=== PATIENT | male | born 1960 | race Caucasian/White ===

== ENCOUNTER → 2016-09-15 | Outpatient (CLI) | payer OTHER ==
--- NOTE | 2016-09-20 10:07 | P.ARTDOP ---
Arterial Doppler LOWER EXTREMITY ARTERIAL DOPPLER: DATE OF SERVICE: 09/15/2016 Reason for study: Right leg pain. Doppler waveforms: Multiphasic bilaterally throughout. Pulse volume recording: Normal configuration throughout. Pressure gradients: None. Ankle-brachial indices: Greater than 1 bilaterally. Toe pressures: 131 on the right, 147 on the left Impression: Normal study.
== END | disposition home or self-care (01) ==
LOC: RADUSWWP 12:18
PROVIDERS: ATTEND Internal Medicine
DX: M79.604 Pain in right leg (principal); M79.605 Pain in left leg
CPT/HCPCS: 93923

== ENCOUNTER 2017-12-04 08:00 | Day surgery (SDC) | payer MEDICARE, OTHER ==
[2017-12-03 09:19] VITALS: BMI 32.8
[~2017-12-04 08:00] MED LIST: SODIUM CHLORIDE 0.9% 1,000 ML IV SCH
[2017-12-04 08:20] VITALS: BP 135/70; PULSE 84; RESP 18; TEMP 97.9
--- NOTE | 2017-12-04 16:00 | P.PCN ---
Preoperative Diagnosis: Diagnosis Syncope Twelve-lead ECG shows sinus rhythm normal PA narrow QRS normal ST segments normal QT interval no delta waves Tilt table test Patient was tilted upright at an angle of 70 per protocol. Baseline blood pressure 115/65 mmHg Baseline heart rate 68 beats a minute Patient was tilted upright at an angle of 70 per protocol is no change in his heart rate and blood pressure No evidence for neurocardiogenic syncope Impression Normal twelve-lead ECG Normal heart rate and blood pressure response to upright tilting
== END 2017-12-04 09:57 | disposition home or self-care (01) ==
LOC: CATHEP 08:00
PROVIDERS: ATTEND Internal Medicine Clinical Cardiac Electrophysiology
DX: R55 Syncope and collapse (principal)
CPT/HCPCS: 93005; 93660

== ENCOUNTER → 2022-09-04 | Outpatient (CLI) | payer MEDICARE ==
--- NOTE | 2022-09-05 07:37 | US ---
EXAMINATION TYPE: US abdomen complete DATE OF EXAM: 09/04/2022 COMPARISON: NONE CLINICAL INDICATION: Male, 62 years old with history of R80.9 POSITIVE MICROALBUMINURIA; TECHNIQUE: Multiple sonographic images of the abdomen are obtained. FINDINGS: EXAM MEASUREMENTS: Liver Length: 18.5 cm Gallbladder Wall: 0.2 cm CBD: 5.6 mm Spleen: 12.5 cm Right Kidney: 12.5 x 5.8 x 6.0 cm Left Kidney: 12.3 x 6.0 x 5.9 cm Pancreas: visualized portions wnl, limited by overlying midline bowel gas Liver: enlarged, course echotexture Gallbladder: multiple echogenic shadowing foci. No abnormal gallbladder distention, wall thickening, or pericholecystic. Evidence for sonographic Irwin's sign: no CBD: visualized portions upper limits of normal, limited by overlying bowel gas Spleen: wnl Right Kidney: wnl Left Kidney: wnl Upper IVC: wnl Abd Aorta: proximal portion measures in upper limits of normal, mid and distal portions obscured by overlying midline bowel gas IMPRESSION: 1. Bowel gas limiting the exam. 2. Mild hepatomegaly at 18.5 cm. Coarsened hepatic parenchyma may represent nonspecific hepatocellula r disease. 3. Cholelithiasis. No ancillary findings of acute cholecystitis. 4. No biliary ductal dilatation.
== END | disposition home or self-care (01) ==
LOC: RADUSWWP 15:29
PROVIDERS: ATTEND Family Medicine
DX: K80.20 Calculus of gallbladder without cholecystitis without obstruction (principal); R80.9 Proteinuria, unspecified; R16.0 Hepatomegaly, not elsewhere classified
CPT/HCPCS: 76700

== ENCOUNTER → 2024-05-23 | Outpatient (CLI) | payer MEDICARE ==
[2024-05-24 02:38] LABS: HCT 42.9 % (39.6-50.0); HGB 13.3 g/dL (13.0-17.0); MCH 27.8 pg (27.0-32.0); MCV 89.6 FL (80.0-97.0); Mean Platelet Volume 9.8 FL (9.5-12.2); NRBC Per 100 WBC 0 X 10*3/uL (0.00-0.01); Platelet Count 281 X 10*3/uL (140-440); RBC 4.79 X 10*6/uL (4.40-5.60); RDW 15.9 % (11.5-14.5)
[2024-05-24 03:43] LABS: Carbon Dioxide 26.8 mmol/L (21.6-31.8); Chloride 104 mmol/L (96-109); Potassium 5.3 mmol/L (3.5-5.5); Sodium 143 mmol/L (135-145)
== END | disposition home or self-care (01) ==
LOC: LABPAT 14:32
PROVIDERS: ATTEND Internal Medicine Clinical Cardiac Electrophysiology
DX: Z01.812 Encounter for preprocedural laboratory examination (principal); I50.22 Chronic systolic (congestive) heart failure; I25.5 Ischemic cardiomyopathy
CPT/HCPCS: 80051; 82565; 84520; 85027

== ENCOUNTER 2024-07-24 14:33 | Day surgery (SDC) | payer MEDICARE ==
[2024-07-21 11:58] VITALS: BMI 31.8
[~2024-07-24 14:33] MED LIST changes: -SODIUM CHLORIDE 0.9% 1,000 ML IV SCH; +VANCOMYCIN IV PER PHARMACY 1 EACH MISC MISCELLANE PRN
[2024-07-24] MEDS: IV FLUID CONTINUATION 1,000 ML IV ONE (14:54)
[2024-07-24] MEDS: SODIUM CHLORIDE 0.9% 1,000 ML IV SCH (14:56)
[2024-07-24] MEDS: VANCOMYCIN 1,500 MG in SODIUM CHLORIDE 0.9% 500 ML 500 ML IVPB ONE (15:02)
[2024-07-24] MEDS: INSULIN LISPRO (HumaLOG) 100 UNIT/ML 10 mL VL SQ ONE (15:07)
[2024-07-24 15:11] LABS: Glucose,Whole Blood 238 mg/dL (70-110)
[2024-07-24 15:23] LABS: Basophils # (A) 0.02 10*3/uL (0.00-0.10); Basophils % (A) 0.2 %; Eosinophils # (A) 0.07 10*3/uL (0.04-0.35); Eosinophils % (A) 0.8 %; HCT 41.7 % (39.6-50.0); HGB 14.1 g/dL (13.0-17.0); Lymphocytes # (A) 0.95 10*3/uL (0.90-5.00); Lymphocytes % (A) 10.5 %; MCH 26.9 pg (27.0-32.0); MCHC 33.8 g/dL (32.0-37.0); MCV 79.4 fL (80.0-97.0); Mean Platelet Volume 9.4 fL (9.5-12.2); Monocytes # (A) 0.39 10*3/uL (0.20-1.00); Monocytes % (A) 4.3 %; Neutrophils % (A) 83.8 %; Platelet Count 259 10*3/uL (140-440); RBC 5.25 10*6/uL (4.40-5.60); RDW 14.7 % (11.5-14.5); WBC 9.07 10*3/uL (4.50-10.00)
[2024-07-24 15:39] LABS: African American GFR (CKD) >90 (>60 ml/min/1.73 sqM); Anion Gap 9 mmol/L; Blood Urea Nitrogen 15 mg/dL (9-20); Calcium 9.6 mg/dL (8.4-10.2); Carbon Dioxide 28 mmol/L (22-30); Chloride 100 mmol/L (98-107); Glucose 257 mg/dL (74-99); Non-African American GFR(CKD) >90 (>60 ml/min/1.73 sqM); Potassium 3.9 mmol/L (3.5-5.1); Sodium 137 mmol/L (137-145)
[2024-07-24 16:06] VITALS: RESP 16
[2024-07-24] MEDS: HYDROCORTISONE SUCCINATE 100 MG/2 ML VIAL IV STA (16:09)
[2024-07-24] MEDS ORDERED: fentaNYL (PF) 50 MCG/ML 2 ML AMP ONE (19:50)
[2024-07-24] MEDS ORDERED: PROPOFOL 10 MG/ML 20 ML VIAL IV ONE (19:50)
[2024-07-24] MEDS ORDERED: diphenhydrAMINE 50 MG/ML 1 ML VIAL ONE (19:50)
[2024-07-24] MEDS ORDERED: MIDAZOLAM 2 MG/2 ML VIAL ONE (19:50)
[2024-07-24] MEDS: ceFAZolin 1 GM in SODIUM CHLORIDE 0.9% IRRIG BTL 250 ML IRRIGATION PRN (19:57)
[2024-07-24] MEDS: IOPAMIDOL-370 100ML BTL IVP ONE (19:57)
[2024-07-24] MEDS: ceFAZolin 2 GM in DEXTROSE 5% IN WATER 50 ML IVPB PRN (20:10)
[2024-07-24] MEDS: ROPIVACAINE 5 MG/ML 30 ML VIAL MISCELLANE ONE (20:25)
[2024-07-24] MEDS: LIDOCAINE 1% INJ 10MG/ML (20 ML MDV) SQ ONE (20:25)
[2024-07-24] MEDS: IOPAMIDOL-370 100ML BTL INJ ONE ×2 (20:46)
[2024-07-24] MEDS: HEPARIN SODIUM,PORCINE (1 ML) 2,500 UNIT in SODIUM CHLORIDE 0.9% 250 ML IRRIGATION ONE (20:48)
[2024-07-24] MEDS ORDERED: IPRATROPIUM-ALBUTEROL 3 ML NEB INHALATION PRN (21:29)
[2024-07-24] MEDS ORDERED: ACETAMINOPHEN TAB 325 MG TAB PO PRN (21:30)
[2024-07-24] MEDS ORDERED: HYDROcodone/APAP 5-325MG 1 EACH TAB PO PRN (21:30)
--- NOTE | 2024-07-24 21:38 | P.EPPROC ---
- EP Procedure Note Electrophysiology Procedure Note: Diagnosis Cardiomyopathy, chronic patient is a candidate for a primary prevention ICD for future risk of sudden cardiac . Coronary artery disease, old myocardial infarction, ischemic cardio myopathy Chronic systolic heart failure class II, reduced LV systolic function of 35% or less On guideline directed medical treatment for greater than 3 months No revascularization within the last 3 months No recent acute myocardial infarction within the last 40 days, status post coronary artery bypass grafting, old TN Severe LV dysfunction ejection fraction 30-35% Sinus bradycardia Procedure: Dual-chamber ICD implantation for management of risk of sudden cardiac /bradycardia Result: Dual chamber ICD implantation, Atrial lead: Medtronic model #5076, 52 cm in length. P waves 4.6 mV pacing impedance 513 ohms and pacing threshold 0.5 V at 0.4 ms RV ICD lead: Single coil Medtronic lead model number 6935M, 62 cm in length. R waves 7.6 mV, pacing impedance 570 ohms, high-voltage impedance 71 ohms, pacing threshold 0.8 V at 0.4 ms Procedure details: Patient was brought to the EP lab in a fasting state. Written informed consent was obtained prior to the procedure. Options, pros and cons, benefits and risks and complications discussed with patient in detail prior to the procedure (shared decision making). Importance of continuing medical treatment emphasized. Alternatives discussed. Patient would like to proceed with dual-chamber ICD implant. Left upper extremity venogram performed. 15 mL IV dye injected in the left arm. Patent axillary/subclavian vein The left pectoral area was prepped and draped as a protocol. IV antibiotics administered 1% lidocaine was used for local anesthesia. A 4 cm incision was made parallel to the deltopectoral groove, about 1.5 cm medial to it. The incision was carried down to the level of the pectoralis muscle and the subfasc ial pocket was made. Hemostasis was assured. The axillary vein access was obtained. Appropriately sized into to see sheaths were placed. ICD lead implanted in the right ventricle and screwed in. ICD lead tested for threshold, sensing, impedances and tested with high output pacing for diaphragmatic stimulation Atrial lead placed in the right atrial appendage and tested for threshold, sensing, impedance, and tested with high output pacing. Phrenic nerve stimulation Lead secured to the underlying transverse muscle after removing sheaths . Pocket irrigated with antibiotic solution Leads connected to the biventricular ICD generator. Wound closed in 3 layers and dressed per protocol Dual ICD interrogated and programmed. Appropriate pacing parameters, antitachycardia therapies with antitachycardia pacing cardioversion defibrillations programmed. Patient tolerated the procedure well without any acute complications. See scanned device report in EMR for lead details
[2024-07-25] MEDS: LACTATED RINGERS 1,000 ML IV SCH (00:08)
[2024-07-25] MEDS: GABAPENTIN 300 MG CAP PO SCH (00:18)
[2024-07-25] MEDS: ceFAZolin 2 GM in DEXTROSE 5% IN WATER 50 ML IVPB SCH (00:19)
[2024-07-25] MEDS: ACETAMINOPHEN IV (For NPO) 1,000 MG in EMPTY BAG 1 BAG IVPB ONE (00:19)
[2024-07-25 06:08] LABS: Glucose,Whole Blood 209 mg/dL (70-110)
[2024-07-25] MEDS: INSULIN GLARGINE (LANTUS) 100 UNIT/ML SYR SQ PRN (06:19)
--- NOTE | 2024-07-25 07:18 | XR ---
EXAMINATION TYPE: XR chest 2V DATE OF EXAM: 07/25/2024 CLINICAL INDICATION: Male, 64 years old with history of Lead placement check, TECHNIQUE: Frontal and lateral views of the chest are obtained. COMPARISON: Chest x-ray December 11, 2022 FINDINGS: Overlying sternal wires and mediastinal clips along with left atrial appendage clip are red emonstrated. Persistent cardiomegaly with new dual lead pacemaker/AICD having the leads projecting over the right atrium and right ventricle. No pneumothorax seen after pacemaker placement. Surgical change to left s houlder is redemonstrated. IMPRESSION: No acute complication related to pacemaker/defibrillator placement noted. [facility], , 07/25/2024 7:16 AM
[2024-07-25] MEDS: SYMBICORT 160-4.5 MCG INHALER INHALATION SCH (08:49)
[2024-07-25] MEDS: ATORVASTATIN 20 MG TAB PO SCH (09:59)
[2024-07-25] MEDS: DAPAGLIFLOZIN PROPANEDIOL 10 MG TABLET PO SCH (10:00)
[2024-07-25] MEDS: SPIRONOLACTONE 25 MG TAB PO SCH (10:00)
[2024-07-25] MEDS: predniSONE 5 MG TAB PO SCH (10:00)
[2024-07-25] MEDS: CLOPIDOGREL 75 MG TAB PO SCH (10:00)
[2024-07-25] MEDS: FUROSEMIDE 20 MG TAB PO SCH (10:00)
[2024-07-25] MEDS: METOPROLOL SUCCINATE (ER) 25 MG TAB.ER.24H PO SCH (10:00)
[2024-07-25] MEDS: ASPIRIN 81 MG PO SCH (10:00)
[2024-07-25] MEDS: METOPROLOL SUCCINATE (ER) 25 MG TAB.ER.24H PO STA (10:24)
[2024-07-25 10:50] VITALS: BP 124/74; TEMP 96.9
[2024-07-25 11:51] LABS: Glucose,Whole Blood 357 mg/dL (70-110)
[2024-07-25 12:53] VITALS: PULSE 52
--- NOTE | 2024-07-25 14:02 | P.DS ---
Providers Expected date of discharge: 07/25/24 Attending physician: Harinder Miller Primary care physician: Prem Elena [facility] Course: This is a 64-year-old male patient of Dr. Vazquez who, hospitalized under the care of Dr. Miller for ICD implantation. Patient is postop day #1. Device has been evaluated by desk representative. Patient denies chest pain or shortness of breath. Blood pressure 124/74, heart rate in the 70s, pulse ox is 95% on room air. Chest x-ray reveals no acute complication. Physical examination: Gen: This is a 64-year-old male in no acute distress. VS: reviewed HEENT: Head is atraumatic, normocephalic. Pupils equal, round. Sclerae is anicteric. NECK: Supple. No JVD. LUNGS: Clear to auscultation. No wheezes or rhonchi. No intercostal retractions. HEART: Regular rate and rhythm. No murmur. ABDOMEN: Soft No tenderness. EXTREMITIES: No pedal edema. No calf tenderness. NEUROLOGICAL: Patient is awake, alert and oriented x3. Assessment: Ischemic cardiomyopathy status post dual chamber ICD implantation Status post coronary artery bypass grafting Severe LV dysfunction with EF 30 to 35% Mild aortic stenosis Chronic congestive heart failure, class II congestive heart failure Plan: Continue patient's home cardiac medications Increase metoprolol succinate 75 mg daily Patient will be discharged home today in stable condition. Nurse practitioner note has been reviewed, I agree with documented findings and plan of care. Patient was seen and examined. Plan - Discharge Summary Discharge Rx Participant: No New Discharge Prescriptions: New Metoprolol Succinate (ER) [Toprol XL] 75 mg PO DAILY #135 tab Continue metFORMIN HCL [Glucophage] 1,000 mg PO BID #60 tab Gabapentin 600 mg PO TID HYDROcodone/APAP 10-325MG [[place] 10-325] 1 tab PO TID PRN PRN Reason: Pain Dapagliflozin Propanediol [Farxiga] 10 mg PO DAILY #30 tab Clopidogrel [Plavix] 75 mg PO DAILY #30 tab Budesonide-Formot 160-4.5 Mcg [Symbicort 160-4.5 Mcg Inhaler] 2 puff INHALATION RT-BID 2 Days #1 each Spironolactone 25 mg PO DAILY Magnesium Oxide [Magnesium] 500 mg PO DAILY Insulin Detemir (Levemir) [Levemir] 7 unit SQ DAILY@0700 PRN PRN Reason: Takes if BS is over 200 Ipratropium-Albuterol Nebulize [Duoneb 0.5 mg-3 mg/3 ml Soln] 3 ml INHALATION DIRECTED PRN PRN Reason: Shortness Of Breath predniSONE 5 mg PO DAILY Albuterol Inhaler [Ventolin Hfa Inhaler] 1 - 2 puff INHALATION RT-QID PRN PRN Reason: Shortness Of Breath Furosemide [Lasix] 20 mg PO DAILY Atorvastatin [Lipitor] 20 mg PO DAILY Aspirin 81 mg PO DAILY Discontinued Metoprolol Succinate (ER) [Toprol Xl] 25 mg PO DAILY Discharge Medication List metFORMIN HCL [Glucophage] 1,000 mg PO BID #60 tab 07/24/14 [Rx] Albuterol Inhaler [Ventolin Hfa Inhaler] 1 - 2 puff INHALATION RT-QID PRN 11/17/22 [History] Gabapentin 600 mg PO TID 11/17/22 [History] HYDROcodone/APAP 10-325MG [[place] 10-325] 1 tab PO TID PRN 11/17/22 [History] Budesonide-Formot 160-4.5 Mcg [Symbicort 160-4.5 Mcg Inhaler] 2 puff INHALATION RT-BID 2 Days #1 each 12/04/22 [Rx] Clopidogrel [Plavix] 75 mg PO DAILY #30 tab 12/04/22 [Rx] Dapagliflozin Propanediol [Farxiga] 10 mg PO DAILY #30 tab 12/04/22 [Rx] Aspirin 81 mg PO DAILY 07/21/24 [History] Atorvastatin [Lipitor] 20 mg PO DAILY 07/21/24 [History] Furosemide [Lasix] 20 mg PO DAILY 07/21/24 [History] Insulin Detemir (Levemir) [Levemir] 7 unit SQ DAILY@0700 PRN 07/21/24 [History] Ipratropium-Albuterol Nebulize [Duoneb 0.5 mg-3 mg/3 ml Soln] 3 ml INHALATION DIRECTED PRN 07/21/24 [History] Magnesium Oxide [Magnesium] 500 mg PO DAILY 07/21/24 [History] Spironolactone 25 mg PO DAILY 07/21/24 [History] predniSONE 5 mg PO DAILY 05/05/25 [History] Metoprolol Succinate (ER) [Toprol XL] 75 mg PO DAILY #135 tab 07/25/24 [Rx] Follow up Appointment(s)/Referral(s): Harinder Miller MD [STAFF PHYSICIAN] - 08/01/24 11:00 am (FOLLOW UP APPOINTMENT MADE IN THE [facility]ICE [facility]. ) Patient Instructions/Handouts: Pacemaker (DC) Discharge Disposition: HOME SELF-CARE
[2024-07-26] MEDS ORDERED: METOPROLOL SUCCINATE (ER) 25 MG TAB.ER.24H PO SCH (09:00)
[2024-07-26] MEDS ORDERED: metFORMIN 500 MG TAB PO SCH (21:00)
== END 2024-07-25 13:02 | disposition home or self-care (01) ==
LOC: CATHEP 14:33 → 3SCARD 21:27 → CATHEP 07-25 13:02
PROVIDERS: ATTEND Internal Medicine Clinical Cardiac Electrophysiology
DX: I25.5 Ischemic cardiomyopathy (principal); I50.22 Chronic systolic (congestive) heart failure; I25.10 Atherosclerotic heart disease of native coronary artery without angina pectoris; I25.2 Old myocardial infarction; Z95.1 Presence of aortocoronary bypass graft; I35.0 Nonrheumatic aortic (valve) stenosis; E11.9 Type 2 diabetes mellitus without complications; Z79.84 Long term (current) use of oral hypoglycemic drugs; Z79.02 Long term (current) use of antithrombotics/antiplatelets; Z79.51 Long term (current) use of inhaled steroids; Z79.52 Long term (current) use of systemic steroids; Z79.82 Long term (current) use of aspirin; Z79.4 Long term (current) use of insulin; Z79.899 Other long term (current) drug therapy
CPT/HCPCS: 94640; 33249; 80048; 85025; 71046; C1769 ×2; C1721; C1892 ×2; C1898; C1895; J2250; J3370; J1200; J1644; J0690 ×2; J2003; J3010; J2795; J2704; J7512; Q9967

== ENCOUNTER 2024-09-30 09:57 | Inpatient (IN) | payer MEDICARE ==
[2024-09-30 10:03] LABS: Glucose,Whole Blood 326 mg/dL (70-110)
--- NOTE | 2024-09-30 10:21 | ED ---
Skin/Abscess/FB HPI - General Chief complaint: Skin/Abscess/Foreign Body Stated complaint: L foot wound Time Seen by Provider: 09/30/24 10:18 Source: patient, RN notes reviewed, old records reviewed Mode of arrival: ambulatory Limitations: no limitations - History of Present Illness Initial comments: 64-year-old male presented to the ER for evaluation of right foot wound. Patient sent by PCP given concern of infection. Patient reports approximately 2 weeks ago he was wearing slide sandals in the yard. He believes he must have hit or injured his toe while out in the yard. He denies a certain instance of injury. He reports over the past 2 weeks he has been caring for the wound at home with warm soapy water and applying Neosporin. Over the past 2 to 3 days patient has noticed increase in swelling redness and proximally spreading edema to toe into foot and ankle. Patient denies pain as he has history of neuropathy. He denies any fevers, chills or bodyaches. Patient is a type II diabetic currently taking metformin and Farxiga he did take his medications this morning. He does admit he is not compliant. - Related Data Home Medications Medication Instructions Recorded Confirmed Albuterol Inhaler [Ventolin Hfa 2 puff INHALATION RT-QID PRN 11/17/22 09/30/24 Inhaler] Gabapentin 600 mg PO TID 11/17/22 09/30/24 HYDROcodone/APAP 10-325MG [[place] 1 tab PO TID PRN 11/17/22 09/30/24 10-325] Ipratropium-Albuterol Nebulize 3 ml INHALATION RT-TID PRN 07/21/24 09/30/24 [Duoneb 0.5 mg-3 mg/3 ml Soln] Spironolactone 25 mg PO DAILY 07/21/24 09/30/24 predniSONE 5 mg PO DAILY 07/21/24 09/30/24 Atorvastatin [Lipitor] 20 mg PO DAILY 09/30/24 09/30/24 Furosemide [Lasix] 20 mg PO DAILY 09/30/24 09/30/24 Previous Rx's Medication Instructions Recorded metFORMIN HCL [Glucophage] 1,000 mg PO BID #60 tab 07/24/14 Budesonide-Formot 160-4.5 Mcg 2 puff INHALATION RT-BID 2 Days #1 12/04/22 [Symbicort 160-4.5 Mcg Inhaler] each Clopidogrel [Plavix] 75 mg PO DAILY #30 tab 12/04/22 Dapagliflozin Propanediol [Farxiga] 10 mg PO DAILY #30 tab 12/04/22 Metoprolol Succinate (ER) [Toprol 75 mg PO DAILY #135 tab 07/25/24 XL] Allergies Allergy/AdvReac Type Severity Reaction Status Date / Time No Known Allergies Allergy Verified 09/30/24 11:56 Review of Systems ROS Statement: Those systems with pertinent positive or pertinent negative responses have been documented in the HPI. ROS Other: All systems not noted in ROS Statement are negative. Past Medical History Past Medical History: Asthma, COPD, CVA/TIA, Diabetes Mellitus, Hyperlipidemia, Hypertension, Osteoarthritis (OA), Pneumonia Additional Past Medical History / Comment(s): occasional trouble swallowing,vertigo, "black out from coughing", traumatic brain injury. Since his traumatic brain injury he states that he has trouble swallowing and does aspirate. Last Myocardial Infarction Date:: 2022 History of Any Multi-Drug Resistant Organisms: None Reported Past Surgical History: Heart Catheterization, Orthopedic Surgery Additional Past Surgical History / Comment(s): LT SHOULDER ARTHROSCOPY 2012, LES carpal tunnel Sx 2005,rt shoulder rotator cuff and reattach of bicep muscle. catheterization 11/08 Past Anesthesia/Blood Transfusion Reactions: No Reported Reaction Additional Past Anesthesia/Blood Transfusion Reaction / Comment(s): No hx of blood transfusion Past Psychological History: Anxiety Smoking Status: Current some day smoker Past Alcohol Use History: None Reported Past Drug Use History: None Reported - Past Family History Mother Family Medical History: No Reported History Additional Family Medical History / Comment(s): Chronic back pain Father Additional Family Medical History / Comment(s): History of EtOH, with esophageal varices and from esophageal bleeding General Exam Limitations: no limitations General appearance: alert, in no apparent distress Respiratory exam: Present: normal lung sounds bilaterally. Absent: respiratory distress, wheezes, rales, rhonchi, stridor Cardiovascular Exam: Present: regular rate, normal rhythm, normal heart sounds. Absent: systolic murmur, diastolic murmur, rubs, gallop, clicks Extremities exam: Present: full ROM, normal capillary refill, pedal edema (Nonpitting right foot extending proximally into ankle.) Neurological exam: Present: alert, oriented X3, CN II-XII intact Skin exam: Present: warm, dry, intact, normal color, other (There is a 3.5 cm x 2.5 cm wound to right great toe pad. There is surrounding erythema noted. No purulent drainage.) Course Vital Signs 09/30/24 09/30/24 10:00 11:46 Temperature 98 F Pulse Rate 78 71 Respiratory 18 18 Rate Blood Pressure 116/70 113/66 O2 Sat by Pulse 100 98 Oximetry - Reevaluation(s) Reevaluation #1: 09/30/24 11:[address] Elena who accepts admission. Medical Decision Making - Medical Decision Making Was pt. sent in by a medical professional or institution (, PA, RECYCLING OPERATIONS MANAGER, urgent care, hospital, or assisted...) When possible be specific @ -Patient sent by PCP for further evaluation of right great toe wound. Did you speak to anyone other than the patient for history (EMS, parent, family, police, friend...)? What history was obtained from this source @ -No Did you review nursing and triage notes (agree or disagree)? Why? @ -I reviewed and agree with nursing and triage notes Were old charts reviewed (outside hosp., previous admission, EMS record, old EKG, old radiological studies, urgent care reports/EKG's, assisted records)? Report findings @ -No old charts were reviewed Differential Diagnosis (chest pain, altered mental status, abdominal pain women, abdominal pain men, vaginal bleeding, weakness, fever, dyspnea, syncope, headache, dizziness, GI bleed, back pain, seizure, CVA, palpatations, mental health, musculoskeletal)? @ -Cellulitis, sepsis, gangrene, osteomyelitis, foreign body... This list is not meant to be all-inclusive EKG interpreted by me (3pts min.). @ -As above X-rays interpreted by me (1pt min.). @ -Right foot x-ray interpreted me negative for acute fractures or dislocations. No osseous erosion. CT interpreted by me (1pt min.). @ -None done U/S interpreted by me (1pt. min.). @ -None done What testing was considered but not performed or refused? (CT, X-rays, U/S, labs)? Why? @ -None What meds were considered but not given or refused? Why? @ -None Did you discuss the management of the patient with other professionals (professionals i.e. , PA, RECYCLING OPERATIONS MANAGER, lab, RT, psych nurse, nephrology social worker, mastic worker, teacher, banking officer, vocational case manager)? Give summary @ -Yes, case discussed with Dr. Elena who accepts admission. Was smoking cessation discussed for >3mins.? @ -No Was critical care preformed (if so, how long)? @ -No Were there social determinants of health that impacted care today? How? (Homelessness, low income, unemployed, alcoholism, drug addiction, transportation, low edu. Level, literacy, decrease access to med. care, fci, rehab)? @ -No Was there de-escalation of care discussed even if they declined (Discuss DNR or withdrawal of care, Hospice)? DNR status @ -No What co-morbidities impacted this encounter? (DM, HTN, Smoking, COPD, CAD, Cancer, CVA, ARF, Chemo, Hep., AIDS, mental health diagnosis, sleep apnea, morbid obesity)? @ -Diabetes mellitus,History of CVA, asthma, COPD, hypertension, hyperlipidemia, osteoarthritis Was patient admitted / discharged? Hospital course, mention meds given and route, prescriptions, significant lab abnormalities, going to OR and other pertinent info. @ -Admitted. 64-year-old male presented the ER for evaluation of right great toe wound. Upon arrival vital signs stable. Patient in no signs of acute distress nontoxic-appearing. Exam remarkable for wound noted to right great toe pad. There is surrounding erythema and edema spreading proximally into foot and ankle. Area is warm to touch. There is no purulent drainage. Patient is neurovascularly intact. Laboratory studies obtained remarkable for WBC of 10.1 with left shift. Lactic 3.1. Sodium 134, potassium 5.2 sample is hemolyzed. Hyperglycemic 344 for which patient received 5 units subcu insulin. Right foot x-ray negative for acute fractures or dislocations. No osseous erosion. Given comorbidities and concern of wound infection, case was discussed with Dr. Elena who accepts admission for IV antibiotic treatment. ID on consult. Blood cultures obtained. Patient started on Unasyn and vancomycin. Upon r eevaluation, patient educated on today's findings. He is agreeable for admission. Patient in stable condition for further evaluation and treatment. Case discussed with ED attending of Dr. Ariza. Undiagnosed new problem with uncertain prognosis? @ -No Drug Therapy requiring intensive monitoring for toxicity (Heparin, Nitro, Insulin, Cardizem)? @ -No Were any procedures done? @ -No Diagnosis/symptom? @ -Cellulitis/wound infection/hyperglycemia Acute, or Chronic, or Acute on Chronic? @ -Acute Uncomplicated (without systemic symptoms) or Complicated (systemic symptoms)? @ -Complicated Side effects of treatment? @ -No Exacerbation, Progression, or Severe Exacerbation? @ -No Poses a threat to life or bodily function? How? (Chest pain, [place], [place], pneumonia, PE, COPD, DKA, ARF, appy, cholecystitis, CVA, Diverticulitis, Homicidal, Suicidal, threat to staff... and all critical care pts) @ -Possibly can be limb threatening due to infection could possibly to sepsis. - Lab Data Result diagrams: 09/30/24 10:35 09/30/24 10:35 Lab Results 09/30/24 09/30/24 09/30/24 Range/Units 10:01 10:35 10:35 WBC 10.12 H (4.50-10.00) 10*3/uL RBC 5.07 (4.40-5.60) 10*6/uL Hgb 13.9 (13.0-17.0) g/dL Hct 41.4 (39.6-50.0) % MCV 81.7 (80.0-97.0) fL MCH 27.4 (27.0-32.0) pg MCHC 33.6 (32.0-37.0) g/dL Plt Count 237 (140-440) 10*3/uL MPV 9.3 L (9.5-12.2) fL Immature Gran % (Auto) 0.7 % Neutrophils % 84.1 % Lymphocytes % 8.9 % Monocytes % 5.1 % Eosinophils % 0.9 % Basophils % 0.3 % Immature Gran # 0.07 H (0.00-0.04) 10*3/uL Neutrophils # 8.51 H (1.80-7.70) 10*3/uL Lymphocytes # 0.90 (0.90-5.00) 10*3/uL Monocytes # 0.52 (0.20-1.00) 10*3/uL Eosinophils # 0.09 (0.04-0.35) 10*3/uL Basophils # 0.03 (0.00-0.10) 10*3/uL Sodium 134 L (137-145) mmol/L Potassium 5.2 H (3.5-5.1) mmol/L Chloride 95 L (98-107) mmol/L Carbon Dioxide 25 (22-30) mmol/L Anion Gap 14 mmol/L BUN 20 (9-20) mg/dL Creatinine 0.81 (0.66-1.25) mg/dL Est GFR (CKD-EPI)AfAm >90 (>60 ml/min/1.73 sqM) Est GFR (CKD-EPI)NonAf >90 (>60 ml/min/1.73 sqM) Glucose 344 H (74-99) mg/dL POC Glucose (mg/dL) 326 H (70-110) mg/dL POC Glu Gin Pole Operator ID Vivienne Tony Lactic Ac Sepsis Rflx Plasma Lactic Acid Max (0.7-2.0) mmol/L Calcium 9.3 (8.4-10.2) mg/dL Total Bilirubin 1.6 H (0.2-1.3) mg/dL AST 42 (17-59) U/L ALT 23 (4-49) U/L Alkaline Phosphatase 98 (38-126) U/L Total Protein 7.8 (6.3-8.2) g/dL Albumin 4.4 (3.5-5.0) g/dL 09/30/24 09/30/24 09/30/24 Range/Units 10:35 11:16 11:24 WBC (4.50-10.00) 10*3/uL RBC (4.40-5.60) 10*6/uL Hgb (13.0-17.0) g/dL Hct (39.6-50.0) % MCV (80.0-97.0) fL MCH (27.0-32.0) pg MCHC (32.0-37.0) g/dL Plt Count (140-440) 10*3/uL MPV (9.5-12.2) fL Immature Gran % (Auto) % Neutrophils % % Lymphocytes % % Monocytes % % Eosinophils % % Basophils % % Immature Gran # (0.00-0.04) 10*3/uL Neutrophils # (1.80-7.70) 10*3/uL Lymphocytes # (0.90-5.00) 10*3/uL Monocytes # (0.20-1.00) 10*3/uL Eosinophils # (0.04-0.35) 10*3/uL Basophils # (0.00-0.10) 10*3/uL Sodium (137-145) mmol/L Potassium (3.5-5.1) mmol/L Chloride (98-107) mmol/L Carbon Dioxide (22-30) mmol/L Anion Gap mmol/L BUN (9-20) mg/dL Creatinine (0.66-1.25) mg/dL Est GFR (CKD-EPI)AfAm (>60 ml/min/1.73 sqM) Est GFR (CKD-EPI)NonAf (>60 ml/min/1.73 sqM) Glucose (74-99) mg/dL POC Glucose (mg/dL) 336 H (70-110) mg/dL POC Glu Gin Pole Operator ID Renny Hearn Lactic Ac Sepsis Rflx Y Plasma Lactic Acid Max 3.1 H* (0.7-2.0) mmol/L Calcium (8.4-10.2) mg/dL Total Bilirubin (0.2-1.3) mg/dL AST (17-59) U/L ALT (4-49) U/L Alkaline Phosphatase (38-126) U/L Total Protein (6.3-8.2) g/dL Albumin (3.5-5.0) g/dL - EKG Data -: EKG Interpreted by Me EKG Comments: EKG taken at 12: 16 showing a sinus rhythm. No ST segment elevations or depressions. No T wave inversions. Ventricular rate 65, OR interval 149, QRS duration 102, QT/QTc 442/454 - Radiology Data Radiology results: report reviewed, image reviewed Disposition Clinical Impression: Hyperglycemia, Cellulitis, Wound infection Disposition: ADMITTED IP TO THIS [facility] Condition: Stable Time of Disposition: 11:43
[2024-09-30] MEDS: SODIUM CHLORIDE 0.9% 1,000 ML IV ONE (10:41)
[2024-09-30 10:49] LABS: Basophils # (A) 0.03 10*3/uL (0.00-0.10); Basophils % (A) 0.3 %; Eosinophils # (A) 0.09 10*3/uL (0.04-0.35); Eosinophils % (A) 0.9 %; HCT 41.4 % (39.6-50.0); HGB 13.9 g/dL (13.0-17.0); Lymphocytes # (A) 0.90 10*3/uL (0.90-5.00); Lymphocytes % (A) 8.9 %; MCH 27.4 pg (27.0-32.0); MCHC 33.6 g/dL (32.0-37.0); MCV 81.7 fL (80.0-97.0); Monocytes # (A) 0.52 10*3/uL (0.20-1.00); Monocytes % (A) 5.1 %; Neutrophils # (A) 8.51 10*3/uL (1.80-7.70); Neutrophils % (A) 84.1 %; Platelet Count 237 10*3/uL (140-440); RBC 5.07 10*6/uL (4.40-5.60); RDW 16.0 % (11.5-14.5); WBC 10.12 10*3/uL (4.50-10.00)
[2024-09-30 11:08] LABS: ALT 23 U/L (4-49); African American GFR (CKD) >90 (>60 ml/min/1.73 sqM); Albumin 4.4 g/dL (3.5-5.0); Anion Gap 14 mmol/L; Blood Urea Nitrogen 20 mg/dL (9-20); Calcium 9.3 mg/dL (8.4-10.2); Carbon Dioxide 25 mmol/L (22-30); Chloride 95 mmol/L (98-107); Glucose 344 mg/dL (74-99); Non-African American GFR(CKD) >90 (>60 ml/min/1.73 sqM); Sodium 134 mmol/L (137-145); Total Protein 7.8 g/dL (6.3-8.2)
[2024-09-30 11:10] LABS: AST 42 U/L (17-59); Alkaline Phosphatase 98 U/L (38-126); Potassium 5.2 mmol/L (3.5-5.1)
--- NOTE | 2024-09-30 11:15 | XR ---
EXAMINATION TYPE: XR foot complete LT DATE OF EXAM: 09/30/2024 10:52 AM COMPARISON: 04/04/2013. CLINICAL INDICATION: Male, 64 years old with history of great toe wound; PHH, pain TECHNIQUE: XR foot complete LT examined in the AP, oblique, and lateral projections. FINDINGS: Soft tissue swelling present particularly around the great toe and throughout the foot. No evidence f or osseous erosion.. No evidence of any acute osseous pathology. Multifocal degeneration changes thr oughout the joints of the foot with osteophyte formation and joint space narrowing. Atherosclerosis of the arterial vasculature. IMPRESSION: 1. Soft tissue swelling without evidence of acute fracture. 2. No evidence of osseous erosion to suggest osteomyelitis. 3. Multifocal degeneration changes throughout the joints of the foot. [facility], , 09/30/2024 11:13 AM
[2024-09-30 11:25] LABS: Glucose,Whole Blood 336 mg/dL (70-110)
[2024-09-30] MEDS ORDERED: VANCOMYCIN IV PER PHARMACY 1 EACH MISC MISCELLANE PRN (11:30)
[2024-09-30] MEDS ORDERED: ACETAMINOPHEN TAB 325 MG TAB PO PRN (11:41)
[2024-09-30] MEDS ORDERED: NALOXONE 0.4 MG/ML 1 ML VIAL IV PRN (11:41)
[2024-09-30] MEDS: AMPICILLIN-SULBACTAM 3 GM in SODIUM CHLORIDE 0.9% 100 ML IVPB STA (11:47)
[2024-09-30] MEDS: INSULIN LISPRO (HumaLOG) 100 UNIT/ML 10 mL VL SQ ONE (11:47)
[2024-09-30] MEDS: SODIUM CHLORIDE 0.9% 1,000 ML IV SCH (11:48)
[2024-09-30] MEDS: VANCOMYCIN 1,750 MG in SODIUM CHLORIDE 0.9% 500 ML 500 ML IVPB ONE (13:29)
[2024-09-30] MEDS: AMPICILLIN-SULBACTAM 3 GM in SODIUM CHLORIDE 0.9% 100 ML IVPB SCH (18:36)
--- NOTE | 2024-09-30 19:19 | P.PCN ---
Date of Procedure: 09/30/24 Preoperative Diagnosis: Ulcer, left great toe Postoperative Diagnosis: Ulcer, left great toe Procedure(s) Performed: Bedside debridement to the level of subcutaneous fat, left great toe Implants: None Anesthesia: none Surgeon: Simon Quiñonez Estimated Blood Loss (ml): 1 Pathology: other (Deep tissue specimen sent for aerobic and anaerobic cultures) Condition: stable Disposition: no change Indications for Procedure: Ulcer to left great toe with necrotic, malodorous tissues noted to wound bed Operative Findings: Consistent with diagnosis; malodorous, necrotic, and infarcted soft tissues to the level of subcutaneous fat noted to the wound to left medial plantar hallux. Wound does not probe to bone. Description of Procedure: After obtaining informed consent from the patient, a sterile #10 scalpel blade and sterile pick-ups were used to remove all hyperkeratotic ticcues from the periwound and all necrotic and nonviable tissues from the wound bed to healthy, bleeding tissues. Post-debridement the wound measures approx. 5cm x 4cm x 0.8cm, with the necrotic center measuring 1.2cm x 1cm x 0.8cm. Deep tissue specimen was sent to pathology for aerobic and anaerobic cultures and sensitivity. The wound was dressed with betadine-soaked gauze and dressed with gauze roll. Patient tolerated the procedure well.
--- NOTE | 2024-09-30 22:50 | P.CONS ---
History of Present Illness - Reason for Consult Consult date: 09/30/24 Left foot cellulitis Requesting physician: Prem Elena - Chief Complaint Left big toe ulcer x 2 weeks - History of Present Illness Patient is a 64-year-old male with a past medical history significant for Asthma, COPD, CVA/TIA, Diabetes Mellitus, Hyperlipidemia, Hypertension, Osteoarthritis (OA), Pneumonia has been dealing with wound to the left big toe for about 2 weeks patient mention started about 2 weeks ago when attributing it to wearing a sandal working in the yard he did have an open wound that has been treating with local care did not have any improvement patient daughter is a nurse. The wound advised the patient to go to the hospital patient did have diabetic neuropathy denies significant pain to the left big toe wound area patient did have some drainage but no foul-smelling patient denies high-grade fever or any chills on presentation to the hospital patient was afebrile no fever have recorded subsequently patient was not tachycardic hypotensive or hypoxic patient did have a white count of 10.12 with a left shift creatinine 0.81 potassium is 5.2 liver enzymes normal bilirubin is 1.6 lactic acid elevated patient did have x-ray of the left foot did not show any bony changes to the left big toe patient was started on vancomycin infectious disease was consulted for further management of antibiotic therapy Review of Systems Positive point and negatives has been mentioned in the HPI, complete review of systems was performed and all other systems are negative Past Medical History Past Medical History: Asthma, COPD, CVA/TIA, Diabetes Mellitus, Hyperlipidemia, Hypertension, Osteoarthritis (OA), Pneumonia Additional Past Medical History / Comment(s): occasional trouble swallowing,vertigo, "black out from coughing", traumatic brain injury. Since his traumatic brain injury he states that he has trouble swallowing and does aspirate. Last Myocardial Infarction Date:: 2022 History of Any Multi-Drug Resistant Organisms: None Reported Past Surgical History: Heart Catheterization, Orthopedic Surgery Additional Past Surgical History / Comment(s): LT SHOULDER ARTHROSCOPY 2012, LES carpal tunnel Sx 2005,rt shoulder rotator cuff and reattach of bicep muscle. catheterization 11/08 Past Anesthesia/Blood Transfusion Reactions: No Reported Reaction Additional Past Anesthesia/Blood Transfusion Reaction / Comm: No hx of blood transfusion Past Psychological History: Anxiety Smoking Status: Current some day smoker Past Alcohol Use History: None Reported Past Drug Use History: None Reported - Past Family History Mother Family Medical History: No Reported History Additional Family Medical History / Comment(s): Chronic back pain Father Additional Family Medical History / Comment(s): History of EtOH, with esophageal varices and from esophageal bleeding Medications and Allergies Home Medications Medication Instructions Recorded Confirmed Type metFORMIN HCL [Glucophage] 1,000 mg PO BID #60 tab 07/24/14 09/30/24 Rx Albuterol Inhaler [Ventolin Hfa 2 puff INHALATION RT-QID PRN 11/17/22 09/30/24 History Inhaler] Gabapentin 600 mg PO TID 11/17/22 09/30/24 History HYDROcodone/APAP 10-325MG [[place] 1 tab PO TID PRN 11/17/22 09/30/24 History 10-325] Budesonide-Formot 160-4.5 Mcg 2 puff INHALATION RT-BID 2 Days #1 12/04/22 09/30/24 Rx [Symbicort 160-4.5 Mcg Inhaler] each Clopidogrel [Plavix] 75 mg PO DAILY #30 tab 12/04/22 09/30/24 Rx Dapagliflozin Propanediol [Farxiga] 10 mg PO DAILY #30 tab 12/04/22 09/30/24 Rx Ipratropium-Albuterol Nebulize 3 ml INHALATION RT-TID PRN 07/21/24 09/30/24 History [Duoneb 0.5 mg-3 mg/3 ml Soln] Spironolactone 25 mg PO DAILY 07/21/24 09/30/24 History predniSONE 5 mg PO DAILY 07/21/24 09/30/24 History Metoprolol Succinate (ER) [Toprol 75 mg PO DAILY #135 tab 07/25/24 09/30/24 Rx XL] Atorvastatin [Lipitor] 20 mg PO DAILY 09/30/24 09/30/24 History Furosemide [Lasix] 20 mg PO DAILY 09/30/24 09/30/24 History Allergies Allergy/AdvReac Type Severity Reaction Status Date / Time No Known Allergies Allergy Verified 09/30/24 11:56 Physical Exam Vitals: Vital Signs Temp Pulse Resp BP Pulse Ox 09/30/24 11:46 71 18 113/66 98 09/30/24 10:00 98 F 78 18 116/70 100 Intake and Output 09/29/24 09/30/24 09/30/24 22:59 06:59 14:59 Other: Weight 99.79 kg GENERAL DESCRIPTION: Elderly male lying in bed, no distress. No tachypnea or accessory muscle of respiration use. HEENT: Shows Pallor , no scleral icterus. Oral mucous membrane is dry. No pharyngeal erythema or thrush NECK: Trachea central, no thyromegaly. LUNGS: Unlabored breathing. Clear to auscultation anteriorly. No wheeze or crackle. HEART: S1, S2, regular rate and rhythm. No loud murmur ABDOMEN: Soft, no tenderness , guarding or rigidity, no organomegaly EXTREMITIES: Left big toe did have an infected callus with an abscess some drainage was noticed which was cultured SKIN: No rash, no masses palpable. NEUROLOGICAL: The patient is awake, alert, oriented x3, mood and affect normal. Results CBC & Chem 7: 10/02/24 04:18 09/30/24 10:35 Labs: Abnormal Lab Results - Last 24 Hours (Table) 09/30/24 09/30/24 09/30/24 Range/Units 10:01 10:35 10:35 WBC 10.12 H (4.50-10.00) 10*3/uL MPV 9.3 L (9.5-12.2) fL Immature Gran # 0.07 H (0.00-0.04) 10*3/uL Neutrophils # 8.51 H (1.80-7.70) 10*3/uL Sodium 134 L (137-145) mmol/L Potassium 5.2 H (3.5-5.1) mmol/L Chloride 95 L (98-107) mmol/L Glucose 344 H (74-99) mg/dL POC Glucose (mg/dL) 326 H (70-110) mg/dL Plasma Lactic Acid Max (0.7-2.0) mmol/L Total Bilirubin 1.6 H (0.2-1.3) mg/dL 09/30/24 09/30/24 Range/Units 10:35 11:24 WBC (4.50-10.00) 10*3/uL MPV (9.5-12.2) fL Immature Gran # (0.00-0.04) 10*3/uL Neutrophils # (1.80-7.70) 10*3/uL Sodium (137-145) mmol/L Potassium (3.5-5.1) mmol/L Chloride (98-107) mmol/L Glucose (74-99) mg/dL POC Glucose (mg/dL) 336 H (70-110) mg/dL Plasma Lactic Acid Max 3.1 H* (0.7-2.0) mmol/L Total Bilirubin (0.2-1.3) mg/dL Assessment and Plan (1) Diabetic ulcer of left foot Current Visit: Yes Status: Acute Code(s): E11.621 - TYPE 2 DIABETES MELLITUS WITH FOOT ULCER; L97.529 - NON-PRESSURE CHRONIC ULCER OTH PRT LEFT FOOT W UNSP SEVERITY SNOMED Code(s): 412584507 (2) Diabetic infection of left foot Current Visit: Yes Status: Acute Code(s): E11.628 - TYPE 2 DIABETES MELLITUS WITH OTHER SKIN COMPLICATIONS; L08.9 - LOCAL INFECTION OF THE SKIN AND SUBCUTANEOUS TISSUE, UNSP SNOMED Code(s): 037724727 (3) Cellulitis of left foot Current Visit: Yes Status: Acute Code(s): L03.116 - CELLULITIS OF LEFT LOWER LIMB SNOMED Code(s): 62324568827358731 Plan: 1patient was in the hospital left big toe infected callus with underlying abscess and cellulitis will need to cover for the polymicrobial fredy commonly seen in diabetic foot infection patient to benefit from surgical debridement and deep culture for which podiatry will be consulted 2-local culture obtained to guide further antibiotic therapy 3-we will treat with the vancomycin pharmacy to dose however add Unasyn to cover for the gram-negative and anaerobes We will follow on clinical condition and cultures to further adjust medication if needed Thank you for this consultation we will follow the patient along with you Dictation was produced using [employer] dictation software. please excuse any grammatical, word or spelling errors. Time with Patient: Greater than 30
[2024-09-30 23:51] LABS: Glucose,Whole Blood 284 mg/dL (70-110)
[2024-10-01] MEDS: VANCOMYCIN 1,750 MG in SODIUM CHLORIDE 0.9% 500 ML 500 ML IVPB SCH (01:38)
[2024-10-01] MEDS ORDERED: HYDROcodone/APAP 10-325MG 1 EACH TAB PO PRN (08:10)
[2024-10-01] MEDS ORDERED: NON FORMULARY DRUG (Albuterol Inhaler 90 MCG Puff) INHALATION PRN (08:10)
--- NOTE | 2024-10-01 08:18 | P.HPIM ---
History of Present Illness H&P Date: 10/01/24 Chief Complaint: Toe cellulitis abscess This is a history physical 64-year-old male with history of diabetic foot ulcer. He states it started probably about a month ago but he did not come in because of noncompliance. Underlying history of COPD asthma TIA and diab etes. Still smoking. We had spent significant amount of time discussing tobacco cessation today. He is admitted appropriately for diabetic left toe ulcer and status postdebridement Review of Systems Constitutional: Denies chills, Denies fever Eyes: denies blurred vision, denies pain Ears, nose, mouth and throat: Denies headache, Denies sore throat Cardiovascular: Denies chest pain, Denies shortness of breath Gastrointestinal: Denies abdominal pain, Denies diarrhea, Denies nausea, Denies vomiting Musculoskeletal: Denies myalgias Integumentary: Denies pruritus, Denies rash Neurological: Reports numbness Past Medical History Past Medical History: Asthma, COPD, CVA/TIA, Diabetes Mellitus, Hyperlipidemia, Hypertension, Osteoarthritis (OA), Pneumonia Additional Past Medical History / Comment(s): occasional trouble swallowing,vertigo, "black out from coughing", traumatic brain injury. Since his traumatic brain injury he states that he has trouble swallowing and does aspirate. Last Myocardial Infarction Date:: 2022 History of Any Multi-Drug Resistant Organisms: None Reported Past Surgical History: Heart Catheterization, Orthopedic Surgery Additional Past Surgical History / Comment(s): LT SHOULDER ARTHROSCOPY 2012, LES carpal tunnel Sx 2005,rt shoulder rotator cuff and reattach of bicep muscle. catheterization 11/08 Past Anesthesia/Blood Transfusion Reactions: No Reported Reaction Additional Past Anesthesia/Blood Transfusion Reaction / Comment(s): No hx of blood transfusion Past Psychological History: Anxiety Smoking Status: Current some day smoker Past Alcohol Use History: None Reported Past Drug Use History: None Reported - Past Family History Mother Family Medical History: No Reported History Additional Family Medical History / Comment(s): Chronic back pain Father Additional Family Medical History / Comment(s): History of EtOH, with esophageal varices and from esophageal bleeding Medications and Allergies Home Medications Medication Instructions Recorded Confirmed Type metFORMIN HCL [Glucophage] 1,000 mg PO BID #60 tab 07/24/14 09/30/24 Rx Albuterol Inhaler [Ventolin Hfa 2 puff INHALATION RT-QID PRN 11/17/22 09/30/24 History Inhaler] Gabapentin 600 mg PO TID 11/17/22 09/30/24 History HYDROcodone/APAP 10-325MG [[place] 1 tab PO TID PRN 11/17/22 09/30/24 History 10-325] Budesonide-Formot 160-4.5 Mcg 2 puff INHALATION RT-BID 2 Days #1 12/04/22 Rx [Symbicort 160-4.5 Mcg Inhaler] each Clopidogrel [Plavix] 75 mg PO DAILY #30 tab 12/04/22 09/30/24 Rx Dapagliflozin Propanediol [Farxiga] 10 mg PO DAILY #30 tab 12/04/22 09/30/24 Rx Ipratropium-Albuterol Nebulize 3 ml INHALATION RT-TID PRN 07/21/24 09/30/24 History [Duoneb 0.5 mg-3 mg/3 ml Soln] Spironolactone 25 mg PO DAILY 07/21/24 09/30/24 History predniSONE 5 mg PO DAILY 07/21/24 09/30/24 History Metoprolol Succinate (ER) [Toprol 75 mg PO DAILY #135 tab 07/25/24 09/30/24 Rx XL] Atorvastatin [Lipitor] 20 mg PO DAILY 09/30/24 09/30/24 History Furosemide [Lasix] 20 mg PO DAILY 09/30/24 09/30/24 History Allergies Allergy/AdvReac Type Severity Reaction Status Date / Time No Known Allergies Allergy Verified 09/30/24 11:56 Physical Exam Vitals: Vital Signs Temp Pulse Resp BP Pulse Ox 10/01/24 05:44 97.7 F 65 18 107/62 97 10/01/24 03:20 98.0 F 62 17 119/70 96 10/01/24 00:30 97.8 F 09/30/24 23:37 62 16 118/70 100 09/30/24 18:40 97.7 F 63 12 118/71 94 L 09/30/24 11:46 71 18 113/66 98 09/30/24 10:00 98 F 78 18 116/70 100 - Constitutional General appearance: no acute distress - EENT Eyes: EOMI - Neck Neck: no lymphadenopathy - Respiratory Respiratory: bilateral: CTA - Cardiovascular Rhythm: regular Heart sounds: normal: S1, S2 Abnormal Heart Sounds: no S3 Gallop - Gastrointestinal General gastrointestinal: soft, no tenderness Results CBC & Chem 7: 09/30/24 10:35 09/30/24 10:35 Labs: Abnormal Lab Results - Last 24 Hours (Table) 09/30/24 09/30/24 09/30/24 Range/Units 10:01 10:35 10:35 WBC 10.12 H (4.50-10.00) 10*3/uL MPV 9.3 L (9.5-12.2) fL Immature Gran # 0.07 H (0.00-0.04) 10*3/uL Neutrophils # 8.51 H (1.80-7.70) 10*3/uL Sodium 134 L (137-145) mmol/L Potassium 5.2 H (3.5-5.1) mmol/L Chloride 95 L (98-107) mmol/L Glucose 344 H (74-99) mg/dL POC Glucose (mg/dL) 326 H (70-110) mg/dL Plasma Lactic Acid Max (0.7-2.0) mmol/L Total Bilirubin 1.6 H (0.2-1.3) mg/dL 09/30/24 09/30/24 09/30/24 Range/Units 10:35 11:24 14:11 WBC (4.50-10.00) 10*3/uL MPV (9.5-12.2) fL Immature Gran # (0.00-0.04) 10*3/uL Neutrophils # (1.80-7.70) 10*3/uL Sodium (137-145) mmol/L Potassium (3.5-5.1) mmol/L Chloride (98-107) mmol/L Glucose (74-99) mg/dL POC Glucose (mg/dL) 336 H (70-110) mg/dL Plasma Lactic Acid Max 3.1 H* 2.9 H* (0.7-2.0) mmol/L Total Bilirubin (0.2-1.3) mg/dL 09/30/24 09/30/24 09/30/24 Range/Units 16:58 19:53 23:20 WBC (4.50-10.00) 10*3/uL MPV (9.5-12.2) fL Immature Gran # (0.00-0.04) 10*3/uL Neutrophils # (1.80-7.70) 10*3/uL Sodium (137-145) mmol/L Potassium (3.5-5.1) mmol/L Chloride (98-107) mmol/L Glucose (74-99) mg/dL POC Glucose (mg/dL) (70-110) mg/dL Plasma Lactic Acid Max 2.4 H* 2.1 H* 2.9 H* (0.7-2.0) mmol/L Total Bilirubin (0.2-1.3) mg/dL 09/30/24 10/01/24 Range/Units 23:50 02:33 WBC (4.50-10.00) 10*3/uL MPV (9.5-12.2) fL Immature Gran # (0.00-0.04) 10*3/uL Neutrophils # (1.80-7.70) 10*3/uL Sodium (137-145) mmol/L Potassium (3.5-5.1) mmol/L Chloride (98-107) mmol/L Glucose (74-99) mg/dL POC Glucose (mg/dL) 284 H (70-110) mg/dL Plasma Lactic Acid Max 2.3 H* (0.7-2.0) mmol/L Total Bilirubin (0.2-1.3) mg/dL Assessment and Plan (1) Cellulitis Current Visit: Yes Status: Acute Code(s): L03.90 - CELLULITIS, UNSPECIFIED SNOMED Code(s): 947868046 (2) Cellulitis of left foot Current Visit: Yes Status: Acute Code(s): L03.116 - CELLULITIS OF LEFT LOWER LIMB SNOMED Code(s): 25602829244645221 (3) Diabetic ulcer of left foot Current Visit: Yes Status: Acute Code(s): E11.621 - TYPE 2 DIABETES MELLITUS WITH FOOT ULCER; L97.529 - NON-PRESSURE CHRONIC ULCER OTH PRT LEFT FOOT W UNSP SEVERITY SNOMED Code(s): 019838311 (4) Hyperlipidemia Current Visit: No Status: Acute Code(s): E78.5 - HYPERLIPIDEMIA, UNSPECIFIED SNOMED Code(s): 45405982 (5) Hypertension Current Visit: No Status: Acute Code(s): I10 - ESSENTIAL (PRIMARY) HYPERTENSION SNOMED Code(s): 19632818 (6) Ischemic cardiomyopathy Current Visit: No Status: Acute Code(s): I25.5 - ISCHEMIC CARDIOMYOPATHY SNOMED Code(s): 836300869 (7) Triple vessel coronary artery disease Current Visit: No Status: Acute Code(s): I25.10 - ATHSCL HEART DISEASE OF [place] CORONARY ARTERY W/O ANG PCTRS SNOMED Code(s): 665868662 Plan: Empiric antibiotic therapy. Status post debridement. Restart home medication. Hold prednisone for now. Diabetic sliding scale. Check CBC and CMP in AM. Appreciate multiple consultants input. Time with Patient: Greater than 30
[2024-10-01] MEDS ORDERED: DEXTROSE 50% SYRINGE 50 ML IVP PRN ×4 (08:19→20:28)
[2024-10-01 08:56] LABS: Glucose,Whole Blood 156 mg/dL (70-110)
[2024-10-01] MEDS: GABAPENTIN 300 MG CAP PO SCH (09:19)
[2024-10-01] MEDS: metFORMIN 500 MG TAB PO SCH (09:19)
[2024-10-01] MEDS: ATORVASTATIN 20 MG TAB PO SCH (09:19)
[2024-10-01] MEDS: DAPAGLIFLOZIN PROPANEDIOL 10 MG TABLET PO SCH (09:19)
[2024-10-01] MEDS: CLOPIDOGREL 75 MG TAB PO SCH (09:19)
[2024-10-01] MEDS: FUROSEMIDE 20 MG TAB PO SCH (09:19)
[2024-10-01] MEDS: METOPROLOL SUCCINATE (ER) 50 MG TAB.ER.24H PO SCH (09:20)
[2024-10-01] MEDS: SPIRONOLACTONE 25 MG TAB PO SCH (09:20)
--- NOTE | 2024-10-01 10:47 | P.CONS ---
History of Present Illness - Reason for Consult Consult date: 09/30/24 Left great toe ulcer - Chief Complaint Left great toe ulcer - History of Present Illness Patient is a pleasant 64 year old male with PMH of DM type 2, TBI, and COPD who is being seen at ED bedside for a painful ulcer to the left great toe. Patient is accompanied by his 2 adult daughters. Patient relates a history of noncompliance with blood glucose monitoring and medication. He is a current smo ker. Patient relates he probably has diabetic neuropathy as he cannot feel things to his feet. He states that the ulcer started as a callus about one month prior; a few weeks ago, he was mowing the lawn and noticed that the callus was starting to peel off and he peeled off a portion of it; he relates he was cleaning the area with soapy water at home. He recently saw his PCP after he started noticing pain to the left great toe, and his PCP urged him to go to the ED for further care. Patient was seen in the ED and is being admitted for further care. Patient has no other pedal complains at this time. Review of Systems Constitutional: Reports as per HPI, Denies chills, Denies fever, Denies malaise Eyes: denies blurred vision, denies diplopia Ears: deny: decreased hearing, tinnitus Ears, nose, mouth and throat: Denies headache, Denies sore throat, Denies vertigo Cardiovascular: Reports edema (Edema to LLE), Reports leg edema (Edema to LLE), Denies chest pain, Denies claudication, Denies lightheadedness, Denies palpitations, Denies shortness of breath Respiratory: Denies cough, Denies dyspnea, Denies hemoptysis, Denies wheezing Gastrointestinal: Denies constipation, Denies diarrhea, Denies heartburn, Denies nausea, Denies vomiting Musculoskeletal: Reports as per HPI, Reports leg numbness/tingling, Denies gait dysfunction, Denies hot joints, Denies low back pain, Denies muscle weakness, Denies shooting leg pain Musculoskeletal: left: as per HPI, foot pain (Left great toe pain) Integumentary: Reports as per HPI, Reports foot/leg ulcers (Left great toe ulcer), Reports onychomycosis, Reports unusual bruising (To right great toe at base of toenail), Denies color changes, Denies rash, Denies sores Neurological: Reports as per HPI, Reports numbness (To both feet), Denies burning pain, Denies head injury, Denies headaches, Denies paralysis, Denies paresthesias, Denies syncope, Denies vertigo, Denies weakness Past Medical History Past Medical History: Asthma, COPD, CVA/TIA, Diabetes Mellitus, Hyperlipidemia, Hypertension, Osteoarthritis (OA), Pneumonia Additional Past Medical History / Comment(s): occasional trouble swallo wing,vertigo, "black out from coughing", traumatic brain injury. Since his traumatic brain injury he states that he has trouble swallowing and does aspirate. Last Myocardial Infarction Date:: 2022 History of Any Multi-Drug Resistant Organisms: None Reported Past Surgical History: Heart Catheterization, Orthopedic Surgery Additional Past Surgical History / Comment(s): LT SHOULDER ARTHROSCOPY 2012, LES carpal tunnel Sx 2005,rt shoulder rotator cuff and reattach of bicep muscle. catheterization 11/08 Past Anesthesia/Blood Transfusion Reactions: No Reported Reaction Additional Past Anesthesia/Blood Transfusion Reaction / Comm: No hx of blood transfusion Past Psychological History: Anxiety Smoking Status: Current some day smoker Past Alcohol Use History: None Reported Past Drug Use History: None Reported - Past Family History Mother Family Medical History: No Reported History Additional Family Medical History / Comment(s): Chronic back pain Father Additional Family Medical History / Comment(s): History of EtOH, with esophageal varices and from esophageal bleeding Medications and Allergies Home Medications Medication Instructions Recorded Confirmed Type metFORMIN HCL [Glucophage] 1,000 mg PO BID #60 tab 07/24/14 09/30/24 Rx Albuterol Inhaler [Ventolin Hfa 2 puff INHALATION RT-QID PRN 11/17/22 09/30/24 History Inhaler] Gabapentin 600 mg PO TID 11/17/22 09/30/24 History HYDROcodone/APAP 10-325MG [[place] 1 tab PO TID PRN 11/17/22 09/30/24 History 10-325] Budesonide-Formot 160-4.5 Mcg 2 puff INHALATION RT-BID 2 Days #1 12/04/22 09/30/24 Rx [Symbicort 160-4.5 Mcg Inhaler] each Clopidogrel [Plavix] 75 mg PO DAILY #30 tab 12/04/22 09/30/24 Rx Dapagliflozin Propanediol [Farxiga] 10 mg PO DAILY #30 tab 12/04/22 09/30/24 Rx Ipratropium-Albuterol Nebulize 3 ml INHALATION RT-TID PRN 07/21/24 09/30/24 History [Duoneb 0.5 mg-3 mg/3 ml Soln] Spironolactone 25 mg PO DAILY 07/21/24 09/30/24 History predniSONE 5 mg PO DAILY 07/21/24 09/30/24 History Metoprolol Succinate (ER) [Toprol 75 mg PO DAILY #135 tab 07/25/24 09/30/24 Rx XL] Atorvastatin [Lipitor] 20 mg PO DAILY 09/30/24 09/30/24 History Furosemide [Lasix] 20 mg PO DAILY 09/30/24 09/30/24 History Allergies Allergy/AdvReac Type Severity Reaction Status Date / Time No Known Allergies Allergy Verified 09/30/24 11:56 Physical Exam Vitals: Vital Signs Temp Pulse Resp BP Pulse Ox 09/30/24 11:46 71 18 113/66 98 09/30/24 10:00 98 F 78 18 116/70 100 Intake and Output 09/30/24 09/30/24 09/30/24 06:59 14:59 22:59 Other: Weight 99.79 kg - Constitutional Well nourished and well developed male. Alert and oriented x3. Not in acute distress. Appropriate mood and affect. Pleasant demeanor. General appearance: cooperative, no acute distress - EENT Eyes: PERRLA, normal appearance - Respiratory Breathing is unlabored, with normal rate and rhythm. - Cardiovascular DP and PT pulses are 1/4 bilaterally. CFT is <3 seconds to all 10 toes, including left hallux. Hair growth is absent to the level of the digits. Edema noted to the LLE. Skin temperature is warm from mid-tibia to the distal digits, with the LLE warmer compared to RLE. Rhythm: regular - Gastrointestinal General gastrointestinal: soft, no tenderness - Integumentary Ulcer noted to the medial plantar aspect of the left hallux. Periwound is hyperkeratotic with some maceration. Necrotic area approx. 1cm in diameter noted centrally; the area is malodorous. Minimal serosanguinous drainage noted with slight purulence noted. After debridement, wound is predominantly superficial thickness to the level of the deep dermis; overall wound measures 4.5cm x 3.5cm. Centrally, there is a full thickness wound to the level of the subcutaneous fat measuring 1.2cm x1cm x0.8cm. The wound edges do not undermine. Wound does not probe to bone. Ecchymosis noted to the base of the right hallux nail at eponychium. Hallux nails are grossly thickened, discolored, dystrophic, and with subungual debris. Webspaces 1-4 bilaterally are clean and dry. Integumentary: ulcer (To left medial plantar hallux) - Neurologic Epicritic and protopahic sensations are diminished to the level of the toes and forefoot bilaterally. Light touch sensation is diminished to the level of the forefoot bilaterally. - Musculoskeletal Muscle strength is 5/5 and symmetric for all muscle groups crossing the ankle joint bilaterally. Mild pain with palpation of the left hallux. No pain with active, passive, or resistive ROM of the bilateral foot and ankle. Foot and ankle are in grossly rectus alignment bilaterally. Musculoskeletal: strength equal bilaterally - Psychiatric Psychiatric: A&O x's 3, appropriate affect, intact judgment & insight Results CBC & Chem 7: 09/30/24 10:35 09/30/24 10:35 Labs: Abnormal Lab Results - Last 24 Hours (Table) 09/30/24 09/30/24 09/30/24 Range/Units 10:01 10:35 10:35 WBC 10.12 H (4.50-10.00) 10*3/uL MPV 9.3 L (9.5-12.2) fL Immature Gran # 0.07 H (0.00-0.04) 10*3/uL Neutrophils # 8.51 H (1.80-7.70) 10*3/uL Sodium 134 L (137-145) mmol/L Potassium 5.2 H (3.5-5.1) mmol/L Chloride 95 L (98-107) mmol/L Glucose 344 H (74-99) mg/dL POC Glucose (mg/dL) 326 H (70-110) mg/dL Plasma Lactic Acid Max (0.7-2.0) mmol/L Total Bilirubin 1.6 H (0.2-1.3) mg/dL 09/30/24 09/30/24 09/30/24 Range/Units 10:35 11:24 14:11 WBC (4.50-10.00) 10*3/uL MPV (9.5-12.2) fL Immature Gran # (0.00-0.04) 10*3/uL Neutrophils # (1.80-7.70) 10*3/uL Sodium (137-145) mmol/L Potassium (3.5-5.1) mmol/L Chloride (98-107) mmol/L Glucose (74-99) mg/dL POC Glucose (mg/dL) 336 H (70-110) mg/dL Plasma Lactic Acid Max 3.1 H* 2.9 H* (0.7-2.0) mmol/L Total Bilirubin (0.2-1.3) mg/dL 09/30/24 Range/Units 16:58 WBC (4.50-10.00) 10*3/uL MPV (9.5-12.2) fL Immature Gran # (0.00-0.04) 10*3/uL Neutrophils # (1.80-7.70) 10*3/uL Sodium (137-145) mmol/L Potassium (3.5-5.1) mmol/L Chloride (98-107) mmol/L Glucose (74-99) mg/dL POC Glucose (mg/dL) (70-110) mg/dL Plasma Lactic Acid Max 2.4 H* (0.7-2.0) mmol/L Total Bilirubin (0.2-1.3) mg/dL Assessment and Plan (1) Cellulitis of left foot Current Visit: Yes Status: Acute Code(s): L03.116 - CELLULITIS OF LEFT LOWER LIMB SNOMED Code(s): 19538481016079929 (2) Diabetic ulcer of left foot Current Visit: Yes Status: Acute Code(s): E11.621 - TYPE 2 DIABETES MELLITUS WITH FOOT ULCER; L97.529 - NON-PRESSURE CHRONIC ULCER OTH PRT LEFT FOOT W UNSP SEVERITY SNOMED Code(s): 218757926 (3) Tobacco dependence Current Visit: No Status: Acute Code(s): F17.200 - NICOTINE DEPENDENCE, UNSPECIFIED, UNCOMPLICATED SNOMED Code(s): 37803497 (4) Type 2 diabetes mellitus Current Visit: No Status: Acute Code(s): E11.9 - TYPE 2 DIABETES MELLITUS WITHOUT COMPLICATIONS SNOMED Code(s): 35094007 Plan: 1) Reviewed labs; WBC count 10.12, lactic acid 2.4. Patient is currently on IV ampicillin/sulbactam and vancomycin. Infectious Diseases following. Swab cultures were taken and results are pending. Deep tissue cultures were obtained and sent for A&A cultures and sensitivities; results pending. 2) Performed bedside debridement of the ulcer to the left great toe. Deep issue specimen obtained and sent for cultures; results pending. The area was dressed with Betadine-soaked gauze and wrapped with gauze roll. Patient was ordered a post-op shoe for ambulation. Patient is OK to ambulate as tolerated with post-op shoe to LLE. Reviewed XR; no osseous changes suggestive of OM were noted to the left hallux phalanges. Will continue with daily dressing changes of Opticel AG to the wound covered with gauze and gauze roll. 3) Patient was encouraged to minimize or quit smoking. 4) Hospitalist following and managing. Discussed with the patient and his family at length the importance of glycemic monitoring and adherence to antihyperglycemic medication regimen. Discussed with the patient the risks consistently high blood sugars will pose to his vision, kidney function, peripheral nerve damage, and healing potential. Patient verbalized understanding and agreement with the treatment plan as stated. All of his questions were answered to his satisfaction. Time with Patient: Greater than 30
[2024-10-01 12:22] LABS: Glucose,Whole Blood 205 mg/dL (70-110)
--- NOTE | 2024-10-01 14:06 | P.PN ---
Subjective Progress Note Date: 10/01/24 Principal diagnosis: Left great toe ulcer Patient seen at bedside today. Patient is pleasant and is resting comfortably in recliner. Patient is 1 day s/p bedside debridement of left great toe ulcer. Patient denies any pain to the left great toe. Patient denies any NVFC, SOB, CP, or calf tenderness. He has no new pedal complaints at this visit. Objective - Vital Signs Vital signs: Vital Signs Temp 98.0 F 10/01/24 10:33 Pulse 71 10/01/24 10:33 Resp 18 10/01/24 10:33 BP 102/65 10/01/24 10:33 Pulse Ox 100 10/01/24 10:33 FiO2 Intake & Output 09/30/24 10/01/24 10/01/24 18:59 06:59 18:59 Weight 99.79 kg 99.79 kg - Constitutional Constitutional Comment(s): Well nourished and well developed male. Alert and oriented x3. Not in acute distress. Appropriate mood and affect. Pleasant demeanor. General appearance: Present: cooperative, obese - EENT Eyes: Present: PERRLA, normal appearance - Respiratory Details: Breathing is unlabored, with normal rate and rhythm. - Cardiovascular Details: DP and PT pulses are 1/4 bilaterally. CFT is <3 seconds to all 10 toes, including left hallux. Hair growth is absent to the level of the digits. Edema noted to the LLE. Skin temperature is warm from mid-tibia to the distal digits. Rhythm: regular - Gastrointestinal General gastrointestinal: Present: soft. Absent: tenderness - Integumentary Integumentary Comment(s): Ulcer noted to the medial plantar aspect of the left hallux. Minimal serosanguinous drainage noted; no purulence noted. Wound bed is superficial thickness to the level of the deep dermis with central area of full thickness wound with fibrotic and necrotic tissue to the level of the subcutaneous fat measuring 1.2cm x1cm x0.8cm. Overall, wound measures 4.5cm x 3.5cm. The wound edges do not undermine. Wound does not probe to bone. Ecchymosis noted to the base of the right hallux nail at eponychium. Hallux nails are grossly thickened, discolored, dystrophic, and with subungual debris. Webspaces 1-4 bilaterally are clean and dry. Integumentary: Present: ulcer - Neurologic Neurologic Comment(s): Epicritic and protopahic sensations are diminished to the level of the toes and forefoot bilaterally. Light touch sensation is diminished to the level of the forefoot bilaterally. - Musculoskeletal Musculoskeletal Comment(s): Muscle strength is 5/5 and symmetric for all muscle groups crossing the ankle qamar int bilaterally. Mild pain with palpation of the left hallux. No pain with active, passive, or resistive ROM of the bilateral foot and ankle. Foot and ankle are in grossly rectus alignment bilaterally. Musculoskeletal: Present: strength equal bilaterally. Absent: generalized weakness - Psychiatric Psychiatric: Present: A&O x's 3, appropriate affect, intact judgment & insight - Labs CBC & Chem 7: 09/30/24 10:35 09/30/24 10:35 Labs: Abnormal Lab Results - Last 24 Hours (Table) 09/30/24 09/30/24 09/30/24 Range/Units 14:11 16:58 19:53 POC Glucose (mg/dL) (70-110) mg/dL Plasma Lactic Acid Max 2.9 H* 2.4 H* 2.1 H* (0.7-2.0) mmol/L 09/30/24 09/30/24 10/01/24 Range/Units 23:20 23:50 02:33 POC Glucose (mg/dL) 284 H (70-110) mg/dL Plasma Lactic Acid Max 2.9 H* 2.3 H* (0.7-2.0) mmol/L 10/01/24 10/01/24 Range/Units 08:55 12:20 POC Glucose (mg/dL) 156 H 205 H (70-110) mg/dL Plasma Lactic Acid Max (0.7-2.0) mmol/L Assessment and Plan (1) Cellulitis of left foot Current Visit: Yes Status: Acute Code(s): L03.116 - CELLULITIS OF LEFT LOWER LIMB SNOMED Code(s): 98305548734016568 (2) Diabetic ulcer of left foot Current Visit: Yes Status: Acute Code(s): E11.621 - TYPE 2 DIABETES MELLITUS WITH FOOT ULCER; L97.529 - NON-PRESSURE CHRONIC ULCER OTH PRT LEFT FOOT W UNSP SEVERITY SNOMED Code(s): 103942562 (3) Tobacco dependence Current Visit: No Status: Acute Code(s): F17.200 - NICOTINE DEPENDENCE, UNSPECIFIED, UNCOMPLICATED SNOMED Code(s): 36896336 (4) Type 2 diabetes mellitus Current Visit: No Status: Acute Code(s): E11.9 - TYPE 2 DIABETES MELLITUS WITHOUT COMPLICATIONS SNOMED Code(s): 40043651 Plan: 1) Reviewed labs; lactic acid 2.3. Patient is currently on IV ampicillin/sulbactam and vancomycin. Infectious Diseases following. Swab cultures were taken and results are pending. Deep tissue cultures were obtained and sent for A&A cultures and sensitivities; results pending. 2) Patient is 1 day s/p bedside debridement of the ulcer to the left great toe. Deep issue specimen obtained and sent for cultures; results pending. Changed dressings today with Opticell AG and covered with gauze, gauze roll, and DIEGO bandage. The superficial thickness component of the wound appears healthy and viable; the central, full thickness portion appears to have necrotic and fibrotic tissues to the wound bed. Discussed with the patient about performing a second bedside debridement to remove all necrotic and fibrotic tissues under local anesthesia, and patient was amenable. Will plan for another bedside debridement at tomorrow's visit. Patient was ordered a post-op shoe for ambulation. Patient is OK to ambulate as tolerated with post-op shoe to LLE. Will continue with daily dressing changes of Opticell AG to the wound covered with gauze and gauze roll. 3) Patient was encouraged to minimize or quit smoking. 4) Hospitalist following and managing. Discussed with the patient and his family at length the importance of glycemic monitoring and adherence to antihyperglycemic medication regimen. Discussed with the patient the risks consistently high blood sugars will pose to his vision, kidney function, peripheral nerve damage, and healing potential. Patient verbalized understanding and agreement with the treatment plan as stated. All of his questions were answered to his satisfaction. Time with Patient: Less than 30
[2024-10-01 17:21] LABS: Glucose,Whole Blood 177 mg/dL (70-110)
[2024-10-01] MEDS: IPRATROPIUM-ALBUTEROL 3 ML NEB INHALATION PRN (19:49)
[2024-10-01] MEDS: SYMBICORT 160-4.5 MCG INHALER INHALATION SCH (19:50)
[2024-10-01 20:07] LABS: Glucose,Whole Blood 213 mg/dL (70-110)
[2024-10-01] MEDS: INSULIN LISPRO (HumaLOG) 100 UNIT/ML 10 mL VL SQ SCH (21:35)
[2024-10-02 06:31] LABS: Glucose,Whole Blood 125 mg/dL (70-110)
[2024-10-02 08:05] LABS: HCT 36.8 % (39.6-50.0); HGB 11.8 g/dL (13.0-17.0); MCH 27.3 pg (27.0-32.0); MCHC 32.1 g/dL (32.0-37.0); MCV 85.2 FL (80.0-97.0); NRBC Per 100 WBC 0 X 10*3/uL (0.00-0.01); Platelet Count 187 X 10*3/uL (140-440); RBC 4.32 X 10*6/uL (4.40-5.60); RDW 15.9 % (11.5-14.5); WBC 7.67 X 10*3/uL (4.50-10.00)
--- NOTE | 2024-10-02 08:30 | P.PN ---
Subjective Progress Note Date: 10/01/24 Principal diagnosis: Reason for follow-up is left big toe diabetic foot ulcer and cellulitis Patient is a 64-year-old male with a past medical history significant for Asthma, COPD, CVA/TIA, Diabetes Mellitus, Hyperlipidemia, Hypertension, Osteoarthritis (OA), Pneumonia admitted to hospital with left big toe diabetic foot ulcer and cellulitis. On today's evaluation that is 10/01/2024,the patient denies any fever or any chills, patient is breathing comfortably on room air, the patient denies chest pain shortness of breath and no significant cough, patient denies abdominal pain, no nausea vomiting or diarrhea. Patient denies any worsening pain in the left big toe. No new lab has been obtained today cultures are currently pending Objective - Vital Signs Vital signs: Vital Signs Temp 98.1 F 10/01/24 18:52 Pulse 78 10/01/24 20:04 Resp 16 10/01/24 18:52 BP 100/59 10/01/24 18:52 Pulse Ox 99 10/01/24 18:52 FiO2 Intake & Output 10/01/24 10/01/24 10/02/24 06:59 18:59 06:59 Weight 99.79 kg Other: # Voids 3 - Exam GENERAL DESCRIPTION: An elderly male up in the chair in no distress RESPIRATORY SYSTEM: Unlabored breathing , decreased breath sounds at bases HEART: S1 S2 regular rate and rhythm , ABDOMEN: Soft , no tenderness EXTREMITIES: Left big toe is currently dressed no drainage - Labs CBC & Chem 7: 10/02/24 04:18 09/30/24 10:35 Labs: Abnormal Lab Results - Last 24 Hours (Table) 09/30/24 09/30/24 10/01/24 Range/Units 23:20 23:50 02:33 POC Glucose (mg/dL) 284 H (70-110) mg/dL Plasma Lactic Acid Max 2.9 H* 2.3 H* (0.7-2.0) mmol/L 10/01/24 10/01/24 10/01/24 Range/Units 08:55 12:20 17:19 POC Glucose (mg/dL) 156 H 205 H 177 H (70-110) mg/dL Plasma Lactic Acid Max (0.7-2.0) mmol/L 10/01/24 Range/Units 20:05 POC Glucose (mg/dL) 213 H (70-110) mg/dL Plasma Lactic Acid Max (0.7-2.0) mmol/L Microbiology - Last 24 Hours (Table) 09/30/24 10:39 Blood Culture - Preliminary Blood 09/30/24 18:30 Gram Stain - Preliminary Toe - Left First Assessment and Plan (1) Diabetic ulcer of left foot Current Visit: Yes Status: Acute Code(s): E11.621 - TYPE 2 DIABETES MELLITUS WITH FOOT ULCER; L97.529 - NON-PRESSURE CHRONIC ULCER OTH PRT LEFT FOOT W UNSP SEVERITY SNOMED Code(s): 264179696 (2) Diabetic infection of left foot Current Visit: Yes Status: Acute Code(s): E11.628 - TYPE 2 DIABETES MELLITUS WITH OTHER SKIN COMPLICATIONS; L08.9 - LOCAL INFECTION OF THE SKIN AND SUBCUTANEOUS TISSUE, UNSP SNOMED Code(s): 747053702 (3) Cellulitis of left foot Current Visit: Yes Status: Acute Code(s): L03.116 - CELLULITIS OF LEFT LOWER LIMB SNOMED Code(s): 75815205707224670 Plan: 1patient was in the hospital left big toe infected callus with underlying abscess and cellulitis will need to cover for the polymicrobial fredy usually seen in diabetic foot infection patient to benefit from surgical debridement and deep culture for which podiatry seen the patient and status post a bedside debridement of the infected callus 2-local culture obtained which are currently pending 3-patient is currently being treated with the vancomycin pharmacy to dose and Unasyn while waiting for the culture to finalize Dictation was produced using [employer] dictation software. please excuse any grammatical, word or spelling errors.
--- NOTE | 2024-10-02 08:44 | P.PN ---
Subjective Progress Note Date: 10/02/24 This is a 64-year-old male who was admitted for left great toe infection. He was seen in our office on Sunday of this week with complaints of a wound on his left great toe after hitting it while working outside reportedly a month ago. Patient was sent from our office to the emergency room for further evaluation. Podiatry has seen patient and have debrided the wound once, will likely debride again today. Infectious diseases on the case and cultures are pending. Patient is maintained on vancomycin and Unasyn. Patient seen this morning sitting in chair at bedside. He is eager to go home. Patient does have a history of being noncompliant with his medications. Discussion with patient on importance of staying on IV antibiotics until final culture results. Objective - Vital Signs Vital signs: Vital Signs Temp 97.5 F L 10/02/24 07:00 Pulse 66 10/02/24 07:00 Resp 17 10/02/24 07:00 BP 97/56 10/02/24 07:00 Pulse Ox 100 10/02/24 07:00 FiO2 Intake & Output 10/01/24 10/02/24 10/02/24 18:59 06:59 18:59 Weight 99.79 kg Other: Voiding Method Toilet # Voids 3 2 - Constitutional General appearance: Present: cooperative, no acute distress - EENT Eyes: Present: PERRLA - Neck Neck: Present: normal ROM. Absent: lymphadenopathy, rigidity - Respiratory Respiratory: bilateral: diminished - Cardiovascular Heart sounds: normal: S1, S2 - Gastrointestinal General gastrointestinal: Present: soft. Absent: tenderness - Integumentary Integumentary Comment(s): dressing dry and intact to left great toe Integumentary: Present: normal, normal turgor - Psychiatric Psychiatric: Present: A&O x's 3 - Labs CBC & Chem 7: 10/02/24 04:18 09/30/24 10:35 Labs: Abnormal Lab Results - Last 24 Hours (Table) 10/01/24 10/01/24 10/01/24 Range/Units 08:55 12:20 17:19 RBC (4.40-5.60) X 10*6/uL Hgb (13.0-17.0) g/dL Hct (39.6-50.0) % RDW (11.5-14.5) % POC Glucose (mg/dL) 156 H 205 H 177 H (70-110) mg/dL Hemoglobin A1c (<=6.0) % 10/01/24 10/02/24 10/02/24 Range/Units 20:05 04:18 04:18 RBC 4.32 L (4.40-5.60) X 10*6/uL Hgb 11.8 L (13.0-17.0) g/dL Hct 36.8 L (39.6-50.0) % RDW 15.9 H (11.5-14.5) % POC Glucose (mg/dL) 213 H (70-110) mg/dL Hemoglobin A1c 9.5 H (<=6.0) % 10/02/24 Range/Units 06:30 RBC (4.40-5.60) X 10*6/uL Hgb (13.0-17.0) g/dL Hct (39.6-50.0) % RDW (11.5-14.5) % POC Glucose (mg/dL) 125 H (70-110) mg/dL Hemoglobin A1c (<=6.0) % Microbiology - Last 24 Hours (Table) 09/30/24 10:39 Blood Culture - Preliminary Blood 09/30/24 18:30 Gram Stain - Preliminary Toe - Left First Assessment and Plan (1) Cellulitis of left foot Current Visit: Yes Status: Acute Code(s): L03.116 - CELLULITIS OF LEFT LOWER LIMB SNOMED Code(s): 24089741870601345 (2) Hyperlipidemia Current Visit: No Status: Acute Code(s): E78.5 - HYPERLIPIDEMIA, UNSPECIFIED SNOMED Code(s): 18683916 (3) Hypertension Current Visit: No Status: Acute Code(s): I10 - ESSENTIAL (PRIMARY) HYPERTENSION SNOMED Code(s): 78687456 (4) Tobacco dependence Current Visit: No Status: Acute Code(s): F17.200 - NICOTINE DEPENDENCE, UNSPECIFIED, UNCOMPLICATED SNOMED Code(s): 87693249 (5) Type 2 diabetes mellitus Current Visit: No Status: Acute Code(s): E11.9 - TYPE 2 DIABETES MELLITUS WITHOUT COMPLICATIONS SNOMED Code(s): 85517350 (6) Diabetic infection of left foot Current Visit: Yes Status: Acute Code(s): E11.628 - TYPE 2 DIABETES MELLITUS WITH OTHER SKIN COMPLICATIONS; L08.9 - LOCAL INFECTION OF THE SKIN AND SUBCUTANEOUS TISSUE, UNSP SNOMED Code(s): 904659937 Plan: Await final culture results. Check CBC and CMP in the morning. Patient seen and evaluated by nurse practitioner, physician in agreement with plan.
[2024-10-02 09:22] LABS: ALT 15 U/L (10-49); AST 16 U/L (14-35); Albumin 3.3 g/dL (3.8-4.9); Albumin/Globulin Ratio 1.38 Ratio (1.60-3.17); Alkaline Phosphatase 89 U/L (41-126); Anion Gap 12.40 mmol/L (4.00-12.00); BUN/Creat Ratio 14.57 Ratio (12.00-20.00); Blood Urea Nitrogen 10.2 mg/dL (9.0-27.0); Calcium 8.0 mg/dL (8.7-10.3); Carbon Dioxide 24.6 mmol/L (21.6-31.8); Chloride 102 mmol/L (96-109); Globulin 2.4 g/dL (1.6-3.3); Glucose 145 mg/dL (70-110); Potassium 3.4 mmol/L (3.5-5.5); Sodium 139 mmol/L (135-145); Total Protein 5.7 g/dL (6.2-8.2)
[2024-10-02] MEDS: VANCOMYCIN TROUGH DUE 1 EACH MISC MISCELLANE ONE (12:21)
[2024-10-02 12:36] LABS: Glucose,Whole Blood 217 mg/dL (70-110)
[2024-10-02] MEDS: LIDOCAINE 1% INJ 10MG/ML (20 ML MDV) SQ ONE (15:30)
[2024-10-02 17:19] LABS: Glucose,Whole Blood 191 mg/dL (70-110)
[2024-10-02 19:46] LABS: Glucose,Whole Blood 153 mg/dL (70-110)
--- NOTE | 2024-10-02 22:25 | P.PN ---
Subjective Progress Note Date: 10/02/24 Principal diagnosis: Reason for follow-up is left big toe diabetic foot ulcer and cellulitis Patient is a 64-year-old male with a past medical history significant for Asthma, COPD, CVA/TIA, Diabetes Mellitus, Hyperlipidemia, Hypertension, Osteoarthritis (OA), Pneumonia admitted to hospital with left big toe diabetic foot ulcer and cellulitis. On today's evaluation that is 10/02/2024,the patient remains to be afebrile, patient is on room air not requiring supplemental oxygen and mentioned breathing comfortably with no chest pain or cough.Patient denies having any nausea or vomiting, no abdominal pain and no diarrhea has been reported denies pain to the left big toe area. Patient did have vancomycin trough of 16.1 cultures currently pending Objective - Vital Signs Vital signs: Vital Signs Temp 97.5 F L 10/02/24 07:00 Pulse 66 10/02/24 07:00 Resp 17 10/02/24 07:00 BP 97/56 10/02/24 07:00 Pulse Ox 100 10/02/24 07:00 FiO2 Intake & Output 10/01/24 10/02/24 10/02/24 18:59 06:59 18:59 Intake Total 118 Balance 118 Weight 99.79 kg Intake: Oral 118 Other: Voiding Method Toilet Toilet # Voids 3 2 - Exam GENERAL DESCRIPTION: An elderly male up in the chair in no distress RESPIRATORY SYSTEM: Unlabored breathing , decreased breath sounds at bases HEART: S1 S2 regular rate and rhythm , ABDOMEN: Soft , no tenderness EXTREMITIES: Left big toe is currently dressed no drainage - Labs CBC & Chem 7: 10/02/24 04:18 10/02/24 04:18 Labs: Abnormal Lab Results - Last 24 Hours (Table) 10/01/24 10/01/24 10/01/24 Range/Units 12:20 17:19 20:05 RBC (4.40-5.60) X 10*6/uL Hgb (13.0-17.0) g/dL Hct (39.6-50.0) % RDW (11.5-14.5) % Potassium (3.5-5.5) mmol/L Anion Gap (4.00-12.00) mmol/L Glucose (70-110) mg/dL POC Glucose (mg/dL) 205 H 177 H 213 H (70-110) mg/dL Hemoglobin A1c (<=6.0) % Calcium (8.7-10.3) mg/dL Total Protein (6.2-8.2) g/dL Albumin (3.8-4.9) g/dL Albumin/Globulin Ratio (1.60-3.17) Ratio 10/02/24 10/02/24 10/02/24 Range/Units 04:18 04:18 04:18 RBC 4.32 L (4.40-5.60) X 10*6/uL Hgb 11.8 L (13.0-17.0) g/dL Hct 36.8 L (39.6-50.0) % RDW 15.9 H (11.5-14.5) % Potassium 3.4 L (3.5-5.5) mmol/L Anion Gap 12.40 H (4.00-12.00) mmol/L Glucose 145 H (70-110) mg/dL POC Glucose (mg/dL) (70-110) mg/dL Hemoglobin A1c 9.5 H (<=6.0) % Calcium 8.0 L (8.7-10.3) mg/dL Total Protein 5.7 L (6.2-8.2) g/dL Albumin 3.3 L (3.8-4.9) g/dL Albumin/Globulin Ratio 1.38 L (1.60-3.17) Ratio 10/02/24 Range/Units 06:30 RBC (4.40-5.60) X 10*6/uL Hgb (13.0-17.0) g/dL Hct (39.6-50.0) % RDW (11.5-14.5) % Potassium (3.5-5.5) mmol/L Anion Gap (4.00-12.00) mmol/L Glucose (70-110) mg/dL POC Glucose (mg/dL) 125 H (70-110) mg/dL Hemoglobin A1c (<=6.0) % Calcium (8.7-10.3) mg/dL Total Protein (6.2-8.2) g/dL Albumin (3.8-4.9) g/dL Albumin/Globulin Ratio (1.60-3.17) Ratio Microbiology - Last 24 Hours (Table) 09/30/24 10:39 Blood Culture - Preliminary Blood 09/30/24 18:30 Gram Stain - Preliminary Toe - Left First Assessment and Plan (1) Diabetic ulcer of left foot Current Visit: Yes Status: Acute Code(s): E11.621 - TYPE 2 DIABETES MELLITUS WITH FOOT ULCER; L97.529 - NON-PRESSURE CHRONIC ULCER OTH PRT LEFT FOOT W UNSP SEVERITY SNOMED Code(s): 284556200 (2) Diabetic infection of left foot Current Visit: Yes Status: Acute Code(s): E11.628 - TYPE 2 DIABETES MELLITUS WITH OTHER SKIN COMPLICATIONS; L08.9 - LOCAL INFECTION OF THE SKIN AND SUBCUTANEOUS TISSUE, UNSP SNOMED Code(s): 691471704 (3) Cellulitis of left foot Current Visit: Yes Status: Acute Code(s): L03.116 - CELLULITIS OF LEFT LOWER LIMB SNOMED Code(s): 85134915472947982 Plan: 1patient was in the hospital left big toe infected callus with underlying abscess and cellulitis will need to cover for the polymicrobial fredy usually seen in diabetic foot infection patient to benefit from surgical debridement and deep culture for which podiatry seen the patient and status post a bedside debridement of the infected callus 2-local culture obtained which are currently pending 3-patient currently being treated vancomycin pharmacy to dose level is therapeutic kidney numbers are stable along with Unasyn while waiting for the culture to finalize if culture remains to be negative would consider oral Augmentin on discharge Case discussed with the director of extension work Dictation was produced using [employer] dictation software. please excuse any grammatical, word or spelling errors. Time with Patient: Less than 30
--- NOTE | 2024-10-02 23:59 | P.PCN ---
Date of Procedure: 10/02/24 Preoperative Diagnosis: Diabetic ulcer, left great toe Postoperative Diagnosis: Diabetic ulcer, left great toe Procedure(s) Performed: Bedside debridement, left great toe wound Implants: None Anesthesia: local (3cc of 1% Lidocaine plain) Surgeon: Simon Quiñonez Estimated Blood Loss (ml): 0.5 Pathology: none sent Condition: stable Disposition: no change Indications for Procedure: Diabetic ulcer of left great toe with slough, fibrotic tissues and necrotic tissues to wound bed. Operative Findings: Consistent with diagnosis; wound bed with slough, fibrotic and necrotic tissues to the wound bed. Description of Procedure: After obtaining informed consent from the patient, 3cc of 1% lidocaine plain was used to perform a digital block of the left hallux. Next, a sterile #15 scalpel blade and sterile pick-ups were used to remove all necrotic and nonviable tissues from the wound bed to healthy, bleeding tissues. Post-debridement the wound measures approx. 5cm x 4cm x 0.8cm, with the necrotic center measuring 1.2cm x 1cm x 0.8cm. The wound was dressed with Opticell, and dressed with gauze and gauze roll. Patient tolerated the procedure well.
--- NOTE | 2024-10-03 00:14 | P.PN ---
Subjective Progress Note Date: 10/02/24 Principal diagnosis: Left great toe ulcer Patient seen at bedside today. Patient is pleasant and is resting comfortably in recliner. Patient is s/p bedside debridement of left great toe ulcer. Patient denies any pain to the left great toe. Patient denies any NVFC, SOB, CP, or calf tenderness. He has no new pedal complaints at this visit. Patient relates that he would like to go home as he does not like being in the hospital. Objective - Vital Signs Vital signs: Vital Signs Temp 97.5 F L 10/02/24 07:00 Pulse 66 10/02/24 07:00 Resp 17 10/02/24 07:00 BP 97/56 10/02/24 07:00 Pulse Ox 100 10/02/24 07:00 FiO2 Intake & Output 10/01/24 10/02/24 10/02/24 18:59 06:59 18:59 Intake Total 118 Balance 118 Weight 99.79 kg Intake: Oral 118 Other: Voiding Method Toilet Toilet # Voids 3 2 - Constitutional Constitutional Comment(s): Well nourished and well developed male. Alert and oriented x3. Not in acute distress. Appropriate mood and affect. Pleasant demeanor. General appearance: Present: cooperative, no acute distress - EENT Eyes: Present: PERRLA, normal appearance - Respiratory Details: Breathing unlabored, with regular rate and rhythm. - Cardiovascular Details: DP and PT pulses are 1/4 bilaterally. CFT is <3 seconds to all 10 toes, i ncluding left hallux. Hair growth is absent to the level of the digits. Edema noted to the LLE. Skin temperature is warm from mid-tibia to the distal digits. Rhythm: regular - Gastrointestinal General gastrointestinal: Present: soft. Absent: tenderness - Integumentary Integumentary Comment(s): Ulcer noted to the medial plantar aspect of the left hallux. No drainage noted. Wound bed is superficial thickness to the level of the deep dermis with central area of full thickness wound with fibrotic and necrotic tissue to the level of the subcutaneous fat measuring 1.2cm x1cm x0.8cm. Overall, wound measures 4.5cm x 3.5cm. The wound edges do not undermine. Wound does not probe to bone. Ecchymo sis noted to the base of the right hallux nail at eponychium. Hallux nails are grossly thickened, discolored, dystrophic, and with subungual debris. Webspaces 1-4 bilaterally are clean and dry. Integumentary: Present: ulcer - Neurologic Neurologic Comment(s): Epicritic and protopahic sensations are diminished to the level of the toes and forefoot bilaterally. Light touch sensation is diminished to the level of the forefoot bilaterally. - Musculoskeletal Musculoskeletal Comment(s): Muscle strength is 5/5 and symmetric for all muscle groups crossing the ankle joint bilaterally. No pain with palpation of the left hallux. No pain with active, passive, or resistive ROM of the bilateral foot and ankle. Foot and ankle are in grossly rectus alignment bilaterally. Musculoskeletal: Present: strength equal bilaterally - Psychiatric Psychiatric: Present: A&O x's 3, appropriate affect, intact judgment & insight - Labs CBC & Chem 7: 10/02/24 04:18 10/02/24 04:18 Labs: Abnormal Lab Results - Last 24 Hours (Table) 10/01/24 10/01/24 10/02/24 Range/Units 17:19 20:05 04:18 RBC (4.40-5.60) X 10*6/uL Hgb (13.0-17.0) g/dL Hct (39.6-50.0) % RDW (11.5-14.5) % Potassium (3.5-5.5) mmol/L Anion Gap (4.00-12.00) mmol/L Glucose (70-110) mg/dL POC Glucose (mg/dL) 177 H 213 H (70-110) mg/dL Hemoglobin A1c 9.5 H (<=6.0) % Calcium (8.7-10.3) mg/dL Total Protein (6.2-8.2) g/dL Albumin (3.8-4.9) g/dL Albumin/Globulin Ratio (1.60-3.17) Ratio 10/02/24 10/02/24 10/02/24 Range/Units 04:18 04:18 06:30 RBC 4.32 L (4.40-5.60) X 10*6/uL Hgb 11.8 L (13.0-17.0) g/dL Hct 36.8 L (39.6-50.0) % RDW 15.9 H (11.5-14.5) % Potassium 3.4 L (3.5-5.5) mmol/L Anion Gap 12.40 H (4.00-12.00) mmol/L Glucose 145 H (70-110) mg/dL POC Glucose (mg/dL) 125 H (70-110) mg/dL Hemoglobin A1c (<=6.0) % Calcium 8.0 L (8.7-10.3) mg/dL Total Protein 5.7 L (6.2-8.2) g/dL Albumin 3.3 L (3.8-4.9) g/dL Albumin/Globulin Ratio 1.38 L (1.60-3.17) Ratio 10/02/24 Range/Units 12:35 RBC (4.40-5.60) X 10*6/uL Hgb (13.0-17.0) g/dL Hct (39.6-50.0) % RDW (11.5-14.5) % Potassium (3.5-5.5) mmol/L Anion Gap (4.00-12.00) mmol/L Glucose (70-110) mg/dL POC Glucose (mg/dL) 217 H (70-110) mg/dL Hemoglobin A1c (<=6.0) % Calcium (8.7-10.3) mg/dL Total Protein (6.2-8.2) g/dL Albumin (3.8-4.9) g/dL Albumin/Globulin Ratio (1.60-3.17) Ratio Microbiology - Last 24 Hours (Table) 09/30/24 18:30 Gram Stain - Final Toe - Left First Wound Culture - Final 09/30/24 10:39 Blood Culture - Preliminary Blood Assessment and Plan (1) Cellulitis of left foot Current Visit: Yes Status: Acute Code(s): L03.116 - CELLULITIS OF LEFT LOWER LIMB SNOMED Code(s): 59237304132071015 (2) Diabetic ulcer of left foot Current Visit: Yes Status: Acute Code(s): E11.621 - TYPE 2 DIABETES MELLITUS WITH FOOT ULCER; L97.529 - NON-PRESSURE CHRONIC ULCER OTH PRT LEFT FOOT W UNSP SEVERITY SNOMED Code(s): 130968374 (3) Tobacco dependence Current Visit: No Status: Acute Code(s): F17.200 - NICOTINE DEPENDENCE, UNSPECIFIED, UNCOMPLICATED SNOMED Code(s): 20570013 (4) Type 2 diabetes mellitus Current Visit: No Status: Acute Code(s): E11.9 - TYPE 2 DIABETES MELLITUS WITHOUT COMPLICATIONS SNOMED Code(s): 11676424 Plan: 1) Reviewed labs; WBC count 7.67. Patient is currently on IV ampicillin/s ulbactam and vancomycin. Infectious Diseases following. Deep tissue cultures were obtained and sent for A&A cultures and sensitivities; results show few PPMNs, few Gram negative bacilli, and few Gram positive cocci. 2) The superficial thickness component of the wound appears healthy and viable; the central, full thickness portion appears to have necrotic and fibrotic tissues to the wound bed. Performed bedside debridement of the ulcer to the left great toe to remove necrotic tissues from central portion of the wound. Changed dressings with Opticell and covered with gauze, gauze roll, and DIEGO bandage. Patient is OK to ambulate as tolerated with post-op shoe to LLE. Will continue with daily dressing changes of Opticell AG to the wound covered with gauze and gauze roll. No further debridements are planned by this provider. Discussed with the patient that we will continue with daily dressing changes for now. Patient can follow up at this provider's clinic within 1 week after discharge. 3) Patient was encouraged to minimize or quit smoking. 4) Hospitalist following and managing. Discussed with the patient and his family at length the importance of glycemic monitoring and adherence to antihyperglycemic medication regimen. Discussed with the patient the risks consistently high blood sugars will pose to his vision, kidney function, peripheral nerve damage, and healing potential. Patient verbalized understanding and agreement with the treatment plan as stated. All of his questions were answered to his satisfaction. Time with Patient: Less than 30
[2024-10-03 05:47] LABS: Glucose,Whole Blood 141 mg/dL (70-110)
[2024-10-03 07:41] VITALS: BP 115/68; PULSE 89; RESP 19; TEMP 97.7
--- NOTE | 2024-10-03 08:32 | P.PN ---
Subjective Principal diagnosis: Diabetic foot ulcer debridement. Patient is a 64-year-old male essentially admitted for diabetic foot u lcer. Culture was inconclusive. Appreciate multiple consultants input. The patient is comfortable sitting. We had a long discussion again reiterating having better control of his diabetic condition. Objective - Vital Signs Vital signs: Vital Signs Temp 97.7 F 10/03/24 07:00 Pulse 89 10/03/24 07:00 Resp 19 10/03/24 07:00 BP 115/68 10/03/24 07:00 Pulse Ox 100 10/03/24 07:00 FiO2 Intake & Output 10/02/24 10/03/24 10/03/24 18:59 06:59 18:59 Intake Total 118 118 Balance 118 118 Intake: Oral 118 118 Other: Voiding Method Toilet Toilet # Voids 2 3 - Constitutional General appearance: Present: average body habitus, cooperative, no acute distress - Neck Neck: Absent: lymphadenopathy - Respiratory Respiratory: bilateral: diminished - Cardiovascular Rhythm: regular Heart sounds: normal: S1, S2 Abnormal Heart Sounds: Absent: S3 Gallop, S4 Gallop - Gastrointestinal General gastrointestinal: Present: soft. Absent: tenderness, umbilical hernia - Neurologic Neurologic: Present: CNII-XII intact - Psychiatric Psychiatric: Present: A&O x's 3, appropriate affect - Labs CBC & Chem 7: 10/02/24 04:18 10/02/24 04:18 Labs: Abnormal Lab Results - Last 24 Hours (Table) 10/02/24 10/02/24 10/02/24 Range/Units 04:18 12:35 17:18 Potassium 3.4 L (3.5-5.5) mmol/L Anion Gap 12.40 H (4.00-12.00) mmol/L Glucose 145 H (70-110) mg/dL POC Glucose (mg/dL) 217 H 191 H (70-110) mg/dL Calcium 8.0 L (8.7-10.3) mg/dL Total Protein 5.7 L (6.2-8.2) g/dL Albumin 3.3 L (3.8-4.9) g/dL Albumin/Globulin Ratio 1.38 L (1.60-3.17) Ratio 10/02/24 10/03/24 Range/Units 19:45 05:45 Potassium (3.5-5.5) mmol/L Anion Gap (4.00-12.00) mmol/L Glucose (70-110) mg/dL POC Glucose (mg/dL) 153 H 141 H (70-110) mg/dL Calcium (8.7-10.3) mg/dL Total Protein (6.2-8.2) g/dL Albumin (3.8-4.9) g/dL Albumin/Globulin Ratio (1.60-3.17) Ratio Microbiology - Last 24 Hours (Table) 09/30/24 10:39 Blood Culture - Preliminary Blood 09/30/24 18:30 Gram Stain - Final Toe - Left First Wound Culture - Final Assessment and Plan (1) Cellulitis Current Visit: Yes Status: Acute Code(s): L03.90 - CELLULITIS, UNSPECIFIED SNOMED Code(s): 456790699 (2) Cellulitis of left foot Current Visit: Yes Status: Acute Code(s): L03.116 - CELLULITIS OF LEFT LOWER LIMB SNOMED Code(s): 45359962705845966 (3) Diabetic ulcer of left foot Current Visit: Yes Status: Acute Code(s): E11.621 - TYPE 2 DIABETES MELLITUS WITH FOOT ULCER; L97.529 - NON-PRESSURE CHRONIC ULCER OTH PRT LEFT FOOT W UNSP SEVERITY SNOMED Code(s): 991996462 (4) Hyperlipidemia Current Visit: No Status: Acute Code(s): E78.5 - HYPERLIPIDEMIA, UNSPECIFIED SNOMED Code(s): 82629592 (5) Hypertension Current Visit: No Status: Acute Code(s): I10 - ESSENTIAL (PRIMARY) HYPERTENSION SNOMED Code(s): 30293785 (6) Ischemic cardiomyopathy Current Visit: No Status: Acute Code(s): I25.5 - ISCHEMIC CARDIOMYOPATHY SNOMED Code(s): 104499296 (7) Triple vessel coronary artery disease Current Visit: No Status: Acute Code(s): I25.10 - ATHSCL HEART DISEASE OF [place] CORONARY ARTERY W/O ANG PCTRS SNOMED Code(s): 581348933 Plan: Empiric antibiotic therapy. Status post debridement. Restart home medication. Hold prednisone for now. Diabetic sliding scale. Check CBC and CMP in AM. Appreciate multiple consultants input. Culture being inconclusive. We will defer antibiotic choice to infectious disease. Anticipate discharge in the next 24 to 48 hours.
[2024-10-03 10:17] LABS: HCT 38.5 % (39.6-50.0); HGB 12.1 g/dL (13.0-17.0); MCH 26.8 pg (27.0-32.0); MCHC 31.4 g/dL (32.0-37.0); MCV 85.4 FL (80.0-97.0); NRBC Per 100 WBC 0 X 10*3/uL (0.00-0.01); Platelet Count 182 X 10*3/uL (140-440); RBC 4.51 X 10*6/uL (4.40-5.60); RDW 15.9 % (11.5-14.5); WBC 7.94 X 10*3/uL (4.50-10.00)
[2024-10-03 10:31] LABS: ALT 15 U/L (10-49); AST 17 U/L (14-35); Albumin 3.4 g/dL (3.8-4.9); Albumin/Globulin Ratio 1.42 Ratio (1.60-3.17); Alkaline Phosphatase 83 U/L (41-126); Anion Gap 11.90 mmol/L (4.00-12.00); BUN/Creat Ratio 10.17 Ratio (12.00-20.00); Blood Urea Nitrogen 6.1 mg/dL (9.0-27.0); Calcium 8.1 mg/dL (8.7-10.3); Carbon Dioxide 25.1 mmol/L (21.6-31.8); Chloride 108 mmol/L (96-109); Globulin 2.4 g/dL (1.6-3.3); Glucose 129 mg/dL (70-110); Potassium 4.0 mmol/L (3.5-5.5); Sodium 145 mmol/L (135-145); Total Protein 5.8 g/dL (6.2-8.2)
[2024-10-03 10:46] VITALS: BMI 31.5
--- NOTE | 2024-10-03 12:19 | P.DS ---
Providers Date of admission: 09/30/24 11:29 Attending physician: Prem Elena Consults: 09/30/24 11:41 Consult Physician Urgent Consulting Provider: Augustine Viera Consult Reason/Comments: cellulitis/toe wound Do you want consulting provider notified?: Yes 09/30/24 14:30 Consult Physician Routine Consulting Provider: Simon Quiñonez Consult Reason/Comments: left big toe abscess, debridemnt and deep cultures Do you want consulting provider notified?: Yes Primary care physician: Prem Elena - Discharge Diagnosis(es) (1) Cellulitis Current Visit: Yes Status: Acute (2) Cellulitis of left foot Current Visit: Yes Status: Acute (3) Diabetic ulcer of left foot Current Visit: Yes Status: Acute (4) Hyperlipidemia Current Visit: No Status: Acute (5) Hypertension Current Visit: No Status: Acute (6) Ischemic cardiomyopathy Current Visit: No Status: Acute (7) Triple vessel coronary artery disease Current Visit: No Status: Acute Hospital Course: Chief complaint Diabetic foot ulcer with poor glycemic control. History of present illness Douglas Meraz, 64-year-old male, admitted for diabetic foot ulcer with poor glycemic control. Hemoglobin A1c was 9.5%. Received surgical debridement prior to this encounter. Started on vancomycin, later transitioned to Augmentin after cultures. Remained afebrile and tolerated diet. Review of Systems (ROS) is normal unless otherwise stated in the HPI or in [employer]. Past medical history History of diabetic foot ulcer. Poor control of diabetes with an A1c of 9.5. Past surgical history Surgical debridement for diabetic foot ulcer. Lab results A1c: 9.5 Assessment - Diabetic foot ulcer with poor glycemic control, as indicated by an A1c of 9.5. Plan - Schedule a follow-up appointment in 3 to 5 days to monitor the condition post- discharge. Prescription - Vancomycin, transitioned to Augmentin after cultures were done Appointments - Follow-up appointment in 3 to 5 days after discharge Visit diagnoses suggestions (3) - Type 2 diabetes mellitus with foot ulcer [E11.621] - Type 2 diabetes mellitus with hypoglycemia without coma [E11.649] - Type 2 diabetes mellitus without complications [E11.9] Patient Condition at Discharge: Stable Plan - Discharge Summary New Discharge Prescriptions: New Amoxic-Pot Clav 875-125Mg [Augmentin 875-125] 1 tab PO BID 10 Days #20 tab Continue metFORMIN HCL [Glucophage] 1,000 mg PO BID #60 tab Gabapentin 600 mg PO TID HYDROcodone/APAP 10-325MG [[place] 10-325] 1 tab PO TID PRN PRN Reason: Pain Dapagliflozin Propanediol [Farxiga] 10 mg PO DAILY #30 tab Clopidogrel [Plavix] 75 mg PO DAILY #30 tab Budesonide-Formot 160-4.5 Mcg [Symbicort 160-4.5 Mcg Inhaler] 2 puff INHALATION RT-BID 2 Days #1 each Spironolactone 25 mg PO DAILY Ipratropium-Albuterol Nebulize [Duoneb 0.5 mg-3 mg/3 ml Soln] 3 ml INHALATION RT-TID PRN PRN Reason: Shortness Of Breath predniSONE 5 mg PO DAILY Furosemide [Lasix] 20 mg PO DAILY Atorvastatin [Lipitor] 20 mg PO DAILY Albuterol Inhaler [Ventolin Hfa Inhaler] 2 puff INHALATION RT-QID PRN PRN Reason: Shortness Of Breath Metoprolol Succinate (ER) [Toprol XL] 75 mg PO DAILY #135 tab Discharge Medication List metFORMIN HCL [Glucophage] 1,000 mg PO BID #60 tab 07/24/14 [Rx] Albuterol Inhaler [Ventolin Hfa Inhaler] 2 puff INHALATION RT-QID PRN 11/17/22 [History] Gabapentin 600 mg PO TID 11/17/22 [History] HYDROcodone/APAP 10-325MG [[place] 10-325] 1 tab PO TID PRN 11/17/22 [History] Budesonide-Formot 160-4.5 Mcg [Symbicort 160-4.5 Mcg Inhaler] 2 puff INHALATION RT-BID 2 Days #1 each 12/04/22 [Rx] Clopidogrel [Plavix] 75 mg PO DAILY #30 tab 12/04/22 [Rx] Dapagliflozin Propanediol [Farxiga] 10 mg PO DAILY #30 tab 12/04/22 [Rx] Ipratropium-Albuterol Nebulize [Duoneb 0.5 mg-3 mg/3 ml Soln] 3 ml INHALATION RT-TID PRN 07/21/24 [History] Spironolactone 25 mg PO DAILY 07/21/24 [History] predniSONE 5 mg PO DAILY 07/21/24 [History] Metoprolol Succinate (ER) [Toprol XL] 75 mg PO DAILY #135 tab 07/25/24 [Rx] Atorvastatin [Lipitor] 20 mg PO DAILY 09/30/24 [History] Furosemide [Lasix] 20 mg PO DAILY 09/30/24 [History] Amoxic-Pot Clav 875-125Mg [Augmentin 875-125] 1 tab PO BID 10 Days #20 tab 10/03/24 [Rx] Follow up Appointment(s)/Referral(s): Prem Elena MD [Primary Care Provider] - 3 Days Discharge Disposition: HOME SELF-CARE
--- NOTE | 2024-10-03 13:27 | P.PN ---
Subjective Progress Note Date: 10/03/24 Principal diagnosis: Reason for follow-up is left big toe diabetic foot ulcer and cellulitis Patient is a 64-year-old male with a past medical history significant for Asthma, COPD, CVA/TIA, Diabetes Mellitus, Hyperlipidemia, Hypertension, Osteoarthritis (OA), Pneumonia admitted to hospital with left big toe diabetic foot ulcer and cellulitis. On today's evaluation that is 10/03/2024 patient continues to be afebrile the patient is breathing comfortably on room air he denies having any chest pain shortness of breath or cough no nausea vomiting no abdominal pain no diarrhea and pain to the left big toe. Patient white count 7.94 creatinine 0.6 cultures have been negative so far Objective - Vital Signs Vital signs: Vital Signs Temp 97.7 F 10/03/24 07:00 Pulse 89 10/03/24 07:00 Resp 19 10/03/24 07:00 BP 115/68 10/03/24 07:00 Pulse Ox 100 10/03/24 07:00 FiO2 Intake & Output 10/02/24 10/03/24 10/03/24 18:59 06:59 18:59 Intake Total 118 118 118 Balance 118 118 118 Weight 99.79 kg Intake: Oral 118 118 118 Other: Voiding Method Toilet Toilet # Voids 2 3 - Exam GENERAL DESCRIPTION: An elderly male up in the chair in no distress RESPIRATORY SYSTEM: Unlabored breathing , decreased breath sounds at bases HEART: S1 S2 regular rate and rhythm , ABDOMEN: Soft , no tenderness EXTREMITIES: Left big toe is currently dressed no drainage - Labs CBC & Chem 7: 10/03/24 06:15 10/03/24 06:15 Labs: Abnormal Lab Results - Last 24 Hours (Table) 10/02/24 10/02/24 10/02/24 Range/Units 12:35 17:18 19:45 Hgb (13.0-17.0) g/dL Hct (39.6-50.0) % MCH (27.0-32.0) pg MCHC (32.0-37.0) g/dL RDW (11.5-14.5) % BUN (9.0-27.0) mg/dL BUN/Creatinine Ratio (12.00-20.00) Ratio Glucose (70-110) mg/dL POC Glucose (mg/dL) 217 H 191 H 153 H (70-110) mg/dL Calcium (8.7-10.3) mg/dL Total Protein (6.2-8.2) g/dL Albumin (3.8-4.9) g/dL Albumin/Globulin Ratio (1.60-3.17) Ratio 10/03/24 10/03/24 10/03/24 Range/Units 05:45 06:15 06:15 Hgb 12.1 L (13.0-17.0) g/dL Hct 38.5 L (39.6-50.0) % MCH 26.8 L (27.0-32.0) pg MCHC 31.4 L (32.0-37.0) g/dL RDW 15.9 H (11.5-14.5) % BUN 6.1 L (9.0-27.0) mg/dL BUN/Creatinine Ratio 10.17 L (12.00-20.00) Ratio Glucose 129 H (70-110) mg/dL POC Glucose (mg/dL) 141 H (70-110) mg/dL Calcium 8.1 L (8.7-10.3) mg/dL Total Protein 5.8 L (6.2-8.2) g/dL Albumin 3.4 L (3.8-4.9) g/dL Albumin/Globulin Ratio 1.42 L (1.60-3.17) Ratio Microbiology - Last 24 Hours (Table) 09/30/24 10:39 Blood Culture - Preliminary Blood 09/30/24 18:30 Gram Stain - Final Toe - Left First Wound Culture - Final Assessment and Plan (1) Diabetic ulcer of left foot Status: Acute Code(s): E11.621 - TYPE 2 DIABETES MELLITUS WITH FOOT ULCER; L97.529 - NON-PRESSURE CHRONIC ULCER OTH PRT LEFT FOOT W UNSP SEVERITY SNOMED Code(s): 327619171 (2) Diabetic infection of left foot Status: Acute Code(s): E11.628 - TYPE 2 DIABETES MELLITUS WITH OTHER SKIN COMPLICATIONS; L08.9 - LOCAL INFECTION OF THE SKIN AND SUBCUTANEOUS TISSUE, UNSP SNOMED Code(s): 784527088 (3) Cellulitis of left foot Status: Acute Code(s): L03.116 - CELLULITIS OF LEFT LOWER LIMB SNOMED Code(s): 88104807144693968 Plan: 1patient was in the hospital left big toe infected callus with underlying abscess and cellulitis will need to cover for the polymicrobial fredy usually seen in diabetic foot infection patient to benefit from surgical debridement and deep culture for which podiatry seen the patient and status post a bedside debridement of the infected callus 2-local culture obtained which are negative for any resistant pathogen 3patient will finish therapy with oral Augmentin prescription has been sent to the pharmacy along with local wound care per podiatry and close outpatient follow-up, question concern answered Dictation was produced using [employer] dictation software. please excuse any gram matical, word or spelling errors.
[2024-10-04] MEDS ORDERED: VANCOMYCIN TROUGH DUE 1 EACH MISC MISCELLANE ONE (11:00)
== END 2024-10-03 13:15 | disposition home or self-care (01) | DRG 638 ==
LOC: EC 09:57 → 6NMEDSUR 11:28 → OBSVTOIN 11:29 → UNDODISOB 17:03 → 6NMEDSUR 10-01 09:22
PROVIDERS: ADMIT Family Medicine; ATTEND Family Medicine
PROC: 0HDNXZZ Extraction of Left Foot Skin, External Approach (ICD-10-PCS; principal; 2024-09-30)
PROC: 0HDNXZZ Extraction of Left Foot Skin, External Approach (ICD-10-PCS; 2024-10-02)
DX: E11.621 Type 2 diabetes mellitus with foot ulcer (principal); L03.116 Cellulitis of left lower limb; L97.529 Non-pressure chronic ulcer of other part of left foot with unspecified severity; L03.032 Cellulitis of left toe; E11.42 Type 2 diabetes mellitus with diabetic polyneuropathy; J44.89 Other specified chronic obstructive pulmonary disease; I10 Essential (primary) hypertension; E11.649 Type 2 diabetes mellitus with hypoglycemia without coma; E11.65 Type 2 diabetes mellitus with hyperglycemia; E11.628 Type 2 diabetes mellitus with other skin complications; M19.90 Unspecified osteoarthritis, unspecified site; E78.5 Hyperlipidemia, unspecified; I25.10 Atherosclerotic heart disease of native coronary artery without angina pectoris; I25.2 Old myocardial infarction; I25.5 Ischemic cardiomyopathy; F41.9 Anxiety disorder, unspecified; Z79.02 Long term (current) use of antithrombotics/antiplatelets; Z79.51 Long term (current) use of inhaled steroids; Z79.84 Long term (current) use of oral hypoglycemic drugs; Z79.899 Other long term (current) drug therapy; Z86.73 Personal history of transient ischemic attack (TIA), and cerebral infarction without residual deficits; Z91.148 Patient's other noncompliance with medication regimen for other reason
CPT/HCPCS: 36415; 80053; 80202; 83036; 83605; 85025; 85027; 87040; 87070; 87075; 87205; 93005; 94640; 96361; 96365; 96366; 96367; 99285